=== PATIENT | male | born 1975 | race Caucasian/White ===

== ENCOUNTER → 2016-09-30 | Day surgery (SDC) | payer OTHER ==
[2016-09-10 09:56] VITALS: BMI 27.0
[~2016-09-30] VITALS: Ht 172.7 cm; Wt 81.8 kg
[~2016-09-30] MED LIST: ANDG TOP; CALC625T13 PO; CALC625T35 PO; FENTANYL CITRATE INJ 50 MCG/1 ML 2 ML VIAL ONE; LIDOCAINE HCL 2% 2 ML VIAL (20MG/ML) ONE; OMEG10007 PO; PANT40TA PO; POLYSOL50 IO; PROPOFOL IV EMULSION 10 MG/ML 20 ML VIAL IV ONE
[2016-09-30 09:50] VITALS: Ht 172.7 cm; Wt 81.8 kg
[2016-09-30 09:56] VITALS: TEMP 36.7
--- NOTE | 2016-09-30 10:37 | Endo History and Physical ---
History & Physical Date of Service: Sep 30, 2016. Chief Complaint: GI Bleed Referring Physician: Dr. Ana María Beverly History of Present Illness 41 yo CM who presents for EGD secondary to GI Bleed and hematemesis Past Surgical History Hx Cardiac Surgery: No Hx Internal Defibrillator: No Hx Pacemaker: No Hx Abdominal Surgery: No Hx Post-Op Nausea and Vomiting: No Hx Cancer Surgery: No Hx Thoracic Surgery: No Hx Orthopedic: Yes (RT SHOULDER ARTHRSCOPY) Hx Urinary Tract Surgery: Yes (VASECTOMY) Family History Colon CA Social History Smoking Status: Never Smoker Hx Substance Use: No Hx Alcohol Use: Yes (RARELY) Allergies Coded Allergies: No Known Allergies (Verified , 09/30/16) Current Medications Reported Home Medications Medications Dose Route/Sig Max Daily Dose Days Date Category [place]-3 (Fish Oil) 1 Ea Cap 1 Cap PO QAM 09/02/16 Reported Protonix (Pantoprazole Sodium) 40 Mg Tab 40 Mg PO QAM 09/02/16 Reported Androgel (Testosterone) 5 Gm Gel 1 Pkt TOP QAM 08/25/16 Reported Vital Signs Weight (Kilograms): 81.82 Height (Feet): 5 Height (Inches): 8 Date Time Temp Pulse Resp B/P Pulse Ox O2 Delivery O2 Flow Rate FiO2 09/30/16 09:56 36.7 68 18 121/69 97 Room Air Physical Exam General Appearance: WD/WN, no apparent distress Respiratory/Chest: Auscultation: breath sounds normal Cardiovascular: Heart Auscultation: RRR Abdomen: Bowel Sounds: normal Inspection & Palpation: soft, non-distended, no tenderness, guarding & rebound Assessment and Plan Assessment: 41 yo CM who presents for EGD secondary to GI Bleed and hematemesis Plan: Proceed with EGD
--- NOTE | 2016-09-30 11:05 | GI REPORT ---
Procedure Date: 09/30/2016 10:46 AM Procedure: Upper GI endoscopy Indications: Hematemesis, Gastrointestinal bleeding of unknown origin Medicines: Monitored Anesthesia Care Complications: No immediate complications. Estimated Blood Loss: Estimated blood loss: none. Procedure: Pre-Anesthesia Assessment: - Prior to the procedure, a History and Physical was performed, and patient medications and allergies were reviewed. The patient's tolerance of previous anesthesia was also reviewed. The risks and benefits of the procedure and the sedation options and risks were discussed with the patient. All questions were answered, and informed consent was obtained. Prior Anticoagulants: The patient has taken no previous anticoagulant or antiplatelet agents. ASA Grade Assessment: II - A patient with mild systemic disease. After reviewing the risks and benefits, the patient was deemed in satisfactory condition to undergo the procedure. After obtaining informed consent, the endoscope was passed under direct vision. Throughout the procedure, the patient's blood pressure, pulse, and oxygen saturations were monitored continuously. The scope was introduced through the mouth, and advanced to the second part of duodenum. The upper GI endoscopy was accomplished without difficulty. The patient tolerated the procedure well. Findings: The esophagus was normal. Localized mild inflammation characterized by erythema was found in the gastric antrum. Biopsies were taken with a cold forceps for histology. The examined duodenum was normal. Impression: - Normal esophagus. - Gastritis. Biopsied. - Normal examined duodenum. Recommendation: - Resume previous diet. - Continue present medications. - Await pathology results. - Return to GI office as previously scheduled. Mekhi Blakely DO 09/30/2016 11:04:39 AM This report has been signed electronically. Note Initiated On: 09/30/2016 10:46 AM
[2016-09-30 11:24] VITALS: BP 130/86; PULSE 64; O2SAT 97
--- NOTE | 2016-09-30 11:26 | Discharge Instructions ---
Endoscopy Patient Instructions Date / Procedure(s) Performed Sep 30, 2016. EGD Allergy Information Coded Allergies: No Known Allergies (Verified , 09/30/16) Discharge Date / Findings Sep 30, 2016. Gastritis s/p biopsies Medication Instructions OK to resume all medications today as prescribed Reported Home Medications Medications Dose Route/Sig Max Daily Dose Days Date Category [place]-3 (Fish Oil) 1 Ea Cap 1 Cap PO QAM 09/02/16 Reported Protonix (Pantoprazole Sodium) 40 Mg Tab 40 Mg PO QAM 09/02/16 Reported Androgel (Testosterone) 5 Gm Gel 1 Pkt TOP QAM 08/25/16 Reported Provider Instructions Activity Restrictions - No exercising or heavy lifting for 24 hours. - Do not drink alcohol the day of the procedure. - Do not drive a car or operate machinery until the day after the procedure. - Do not make any important decisions or sign important papers in 24 hours after the procedure. Following Day: - Return to full activity which may include returning to work/school. Diet Start your diet with liquids and light foods (jello, soup, juice, toast). Then eat your usual diet if not nauseated. Treatment For Common After Affects For mild abdominal pain, bloating, or excessive gas: - Rest - Eat lightly - Lie on right side Follow-Up Information Follow-up with Dr. Ana María Beverly as scheduled Anesthesia Information What You Should Know You have had a procedure that required some medicine to reduce anxiety and discomfort. This treatment is called moderate sedation. After receiving the treatment, you may be sleepy, but you will be able to breathe on your own. The effects of the treatment may last for several hours. Follow these instructions along with Activity/Diet recommendations noted above: * Do NOT do anything where dizziness or clumsiness would be dangerous. * Rest quietly at home today, then you can be up and about tomorrow. * Have a responsible person stay with you the rest of today. * You may have had an I.V. today. If so, you may take the dressing off later today. Recommendations Call your doctor if: * Trouble breathing * Continuous vomiting for more than 24 hours * Temperature above 101 degrees * Severe abdominal pain or bloating * Pain not relieved by pain medicine ordered * There is increased drainage or redness from any incision * A large amount of rectal bleeding greater than 2-3 tablespoons. (If you had a polyp/s removed or have hemorrhoids, a small amount of blood - from the rectum is to be expected.) * You have any unanswered questions or concerns. IN THE EVENT OF A SERIOUS EMERGENCY, GO TO THE NEAREST EMERGENCY ROOM Your discharge instructions were prepared by provider Mekhi Blakely. Patient Instructions Signature Page Teo Schmitt Patient (or Guardian) Signature/Date: I have read and understand the instructions given to me by my caregivers. Caregiver/RN/Doctor Signature/Date: The above-named patient and/or guardian has received patient instructions on this date. + Original Patient Signature Page (only) stays with chart. Please make copy for patient.
--- NOTE | 2016-09-30 11:52 | Anesthesiology Progress Note ---
Anesthesia Post Op Note Date & Time Sep 30, 2016 at 11:52 Vital Signs Pain Intensity: 0 Vital Signs Past 12 Hours Date Time Temp Pulse Resp B/P Pulse Ox O2 Delivery O2 Flow Rate FiO2 09/30/16 11:24 64 16 130/86 97 Room Air 09/30/16 11:09 66 16 130/84 97 Room Air 09/30/16 11:01 69 16 139/68 96 Room Air 09/30/16 09:56 36.7 68 18 121/69 97 Room Air Notes Mental Status: alert / awake / arousable, participated in evaluation Pt Amnestic to Procedure: Yes Nausea / Vomiting: adequately controlled Pain: adequately controlled Airway Patency, RR, SpO2: stable & adequate BP & HR: stable & adequate Hydration State: stable & adequate Anesthetic Complications: no major complications apparent
== END | disposition home or self-care (01) ==
LOC: C.GI 09:41
PROVIDERS: ATTEND Internal Medicine
DX: K92.0 Hematemesis (principal); K92.2 Gastrointestinal hemorrhage, unspecified; K29.70 Gastritis, unspecified, without bleeding; Z98.52 Vasectomy status; Z80.0 Family history of malignant neoplasm of digestive organs; Z68.27 Body mass index [BMI] 27.0-27.9, adult

== ENCOUNTER 2017-02-01 09:41 | Emergency (ER) | payer OTHER ==
[~2017-02-01] VITALS: Ht 172.7 cm; Wt 81.7 kg
[~2017-02-01 09:41] MED LIST changes: -CALC625T13 PO; -CALC625T35 PO; -FENTANYL CITRATE INJ 50 MCG/1 ML 2 ML VIAL ONE; -LIDOCAINE HCL 2% 2 ML VIAL (20MG/ML) ONE; -POLYSOL50 IO; -PROPOFOL IV EMULSION 10 MG/ML 20 ML VIAL IV ONE
[2017-02-01 09:48] VITALS: TEMP 37.1; Ht 172.7 cm; Wt 81.7 kg
[2017-02-01] MEDS ORDERED: POLYSOL50 IO (10:22)
--- NOTE | 2017-02-01 10:33 | EMERGENCY ROOM VISIT NOTE ---
History First contact with patient: 09:50 Chief Complaint: EYE ASSESSMENT Stated Complaint: METAL IN EYE History of Present Illness The patient is a 42 year old male who presents to the Emergency Room with complaints of anterior eye pain after drilling into concrete yesterday. He felt he had something in his eye and washed it out thoroughly after the drilling. Pain initially went away but then woke up again with pain this morning and washed out his eye again. He is now pain free in the ER. He denies any vision changes/loss, floaters, flashing lights. He does not wear contact lenses. Review of Systems See HPI for pertinent positives & negatives. A total of 6 systems reviewed and were otherwise negative. Past Medical/Surgical History Medical Problems: (1) Hemorrhoidectomy (2) Panic attack Family History No pertinent family history Social History Smoking Status: Never Smoker Alcohol Use: none Drug Use: none Marital Status: Housing Status: lives with family Occupation Status: employed Current/Historical Medications Scheduled Calcium Polycarbophil (Fiber), 625 MG PO DAILY Fish Oil ([place]-3), 1 CAP PO QAM Polymyxin/Trimethoprim Oph (Polytrim Oph), 1 DROP IO QID Testosterone (Androgel), 1 PKT TOP QAM Allergies Coded Allergies: No Known Allergies (Verified , 02/01/17) Physical Exam Vital Signs Date Time Temp Pulse Resp B/P (MAP) Pulse Ox O2 Delivery O2 Flow Rate FiO2 02/01/17 10:40 70 16 115/68 96 02/01/17 09:48 37.1 76 18 126/71 95 Room Air Physical Exam VITAL SIGNS: were reviewed as above GENERAL: no acute distress EYES: extraocular muscles intact, pupils equal and reactive to light Funduscopic / slit lamp examination: RIGHT EYE: Visual acuity grossly normal Visual field normal Conjunctiva white AC deep and quiet Lens clear optic nerve normal LEFT EYE: No pain on examination Visual acuity grossly normal Visual field normal Conjunctiva mildly injected Small 1mm diameter corneal abrasion enhances with fluorescein dye, no rust ring no foreign object identified on cornea or eyelids AC deep and quiet Clear lens optic nerve normal Medical Decision & Procedures ED Course Patient was seen, history taken and slip lamp examination in room B10 at 10:00am Patient discussed with Dr Monsivais who separately performed H&P (please see additional note) Patient was discharged with Polymyxin/Trimethoprim 1 drop Left eye QID to take for 5 days Medical Decision Prior records/ancillary studies reviewed. Triage Nursing notes reviewed. The patient's history was concerning for eye pain. Differential diagnosis: Etiologies such as corneal ulcer, corneal abrasion, foreign object, iritis, glaucoma as well as others were entertained. Physical findings: As above. No acute vision changes noted Diagnostics interpreted by me: Slit lamp examination revealed a small corneal abrasion. By the evaluation outlined above emergent etiologies were deemed relatively unlikely. The patient was informed about the findings as listed above. All questions were answered and he was pleased with the treatment plan. Return instructions were outlined and the patient was discharged in stable condition. Impression Primary Impression: Corneal abrasion, left Departure Information Dispostion Home / Self-Care Condition GOOD Prescriptions Polymyxin/Trimethoprim Oph (Polytrim Oph) Soln 1 DROP IO QID for 5 Days Prov: Gui Valera MD 02/01/17 Forms WORK / SCHOOL INSTRUCTIONS, HOME CARE DOCUMENTATION FORM, IMPORTANT VISIT INFORMATION Patient Instructions Corneal Injury, [email or web address] Additional Instructions You were assessed in the ER for eye pain after foreign body in your eye. Slit lamp examination showed small corneal abrasion at 11 'o' clock position of your left eye. Recommend treating with topical antibiotics to prevent infection over the next 5 days four times/day. If you have vision changes, pain worsens or does not improve you should be reassessed by your Primary Care Physician or eye doctor. Resident Tracking Resident Involvement: Resident Care Provided Care Provided: Adult ED Problem Qualifiers Primary Impression: Corneal abrasion, left Encounter type: initial encounter Qualified Codes: S05.02XA - Injury of conjunctiva and corneal abrasion without foreign body, left eye, initial encounter
[2017-02-01] MEDS ORDERED: CALC625T35 PO (10:36)
[2017-02-01 10:40] VITALS: BP 115/68; PULSE 70; O2SAT 96
--- NOTE | 2017-02-01 14:12 | EMERGENCY ROOM VISIT NOTE ---
History Report prepared by Matilde: Poncho Hand Under the Supervision of: Yoel WoodallO. First contact with patient: 09:50 Chief Complaint: EYE ASSESSMENT Stated Complaint: METAL IN EYE History of Present Illness The patient is a 42 year old male who presents to the Emergency Room for resolved left eye pain that started last night. He says that he was drilling a brass lock for a pool. The patient states that he felt something go into his left eye, and it felt better after he flushed it. However, he woke up with terrible pain, so he flushed the eye again, and currently has no left eye pain. He says that he may have gotten the piece out of his eye when he flushed it, but just wanted to come here to make sure it was out. The patient denies any difficulty with vision. He states that he does not wear glasses or contacts. No change in vision. Source of History: patient Onset: Last night Position: eye (left) Quality: other (thinks got metal in left eye) Timing: resolved Modifying Factors (Relieving): other (washing eye) Note: Associated symptoms: Denies vision difficulties. Review of Systems See HPI for pertinent positives & negatives. A total of 10 systems reviewed and were otherwise negative. Past Medical & Surgical Medical Problems: (1) Hemorrhoidectomy (2) Panic attack Family History No pertinent family history Social History Smoking Status: Never Smoker Alcohol Use: none Drug Use: none Marital Status: Housing Status: lives with family Occupation Status: employed Current/Historical Medications Scheduled Calcium Polycarbophil (Fiber), 625 MG PO DAILY Fish Oil ([place]-3), 1 CAP PO QAM Polymyxin/Trimethoprim Oph (Polytrim Oph), 1 DROP IO QID Testosterone (Androgel), 1 PKT TOP QAM Allergies Coded Allergies: No Known Allergies (Verified , 02/01/17) Physical Exam Vital Signs Date Time Temp Pulse Resp B/P (MAP) Pulse Ox O2 Delivery O2 Flow Rate FiO2 02/01/17 10:40 70 16 115/68 96 02/01/17 09:48 37.1 76 18 126/71 95 Room Air Physical Exam GENERAL: sitting up in chair, alert, well appearing, well nourished, no distress , non-toxic EYE EXAM: normal conjunctiva, PERRL and EOM's grossly intact Funduscopic Exam: Conjunctiva injected. Small corneal abrasion at 11 o'clock. No cell, no flare. AC deep and quiet. OROPHARYNX: mucous membranes are moist LUNGS: Normal chest wall mechanics UPPER EXTREMITIES: upper extremities are grossly normal. NEURO EXAM: Age appropriate, normal sensorium. Medical Decision & Procedures ED Course ED COURSE: Vital signs were reviewed and showed hypertensive vitals. The patients medical record was reviewed The above diagnostic studies were performed and reviewed. ED treatments and interventions as stated above. 1022: The patient was evaluated in room B12B. A complete history and physical examination was performed. I discussed my findings with the patient and he understands and agrees with the treatment plan. Based on the patients age, coexisting illnesses, exam and lab findings the decision to treat as an outpatient was made. The patient remained stable while under my care. The patient appeared well at the time of discharge. Medical Decision Differential diagnosis: Etiologies such as~a trauma, corneal abrasion, corneal ulcer, foreign body, globe penetration, hyphema, hypopyon, and orbital cellulitis, periorbital cellulitis, as well as others were entertained. Medication Reconciliation: I attest that I have personally reviewed the patient' s current medication list. Blood pressure screening: Patient was found to have an elevated blood pressure and was referred to their primary doctor for recheck and further treatment. Patient is a 42-year-old male who presents the ER he was seen independently and separate from the resident for left eye pain. Patient notes this started while he was drilling into concrete and metal. He felt something go into his eye that point. Patient notes that upon presentation his pain has completely resolved. He did wash his eye out twice. On exam he does have a corneal abrasion and 11:00. I did not see any cell or flare. He has no current complaint. Based on his presentation symptoms and felt was reasonable to discharge him and have him follow-up with ophthalmology in 2 days. He was given ophthalmic antibiotics. Discussed with Pt concerning signs and symptoms to watch out for. Pt was instructed to follow up with their PCP and discussed with the patient their option to return to the ED at anytime for persistent or worsening symptoms. The appropriate anticipatory guidance and out-patient management, including indications for return to the emergency department, were explained at length to the patient and understood. Impression Primary Impression: Corneal abrasion, left Scribe Attestation The scribe's documentation has been prepared under my direction and personally reviewed by me in its entirety. I confirm that the note above accurately reflects all work, treatment, procedures, and medical decision making performed by me. Departure Information Dispostion Home / Self-Care Prescriptions Polymyxin/Trimethoprim Oph (Polytrim Oph) Soln 1 DROP IO QID for 5 Days Prov: Gui Valera MD 02/01/17 Referrals Chucky Beverly D[facility] (PCP) Patient Instructions Corneal Injury, My [facility] Additional Instructions You were assessed in the ER for eye pain after foreign body in your eye. Slit lamp examination showed small corneal abrasion at 11 'o' clock position of your left eye. Recommend treating with topical antibiotics to prevent infection over the next 5 days four times/day. If you have vision changes, pain worsens or does not improve you should be reassessed by your Primary Care Physician or eye doctor. Problem Qualifiers Primary Impression: Corneal abrasion, left Encounter type: initial encounter Qualified Codes: S05.02XA - Injury of conjunctiva and corneal abrasion without foreign body, left eye, initial encounter
[2017-04-30] MEDS ORDERED: PANT40TA PO (08:08)
== END 2017-02-01 10:41 | disposition home or self-care (01) ==
LOC: C.EDB 09:42
DX: S05.02XA Injury of conjunctiva and corneal abrasion without foreign body, left eye, initial encounter (principal); Z79.899 Other long term (current) drug therapy; X58.XXXA Exposure to other specified factors, initial encounter; Y93.89 Activity, other specified

== ENCOUNTER → 2017-03-23 | Outpatient (CLI) | payer OTHER ==
[~2017-03-23] MED LIST changes: +CALC625T35 PO; +POLYSOL50 IO
[2017-03-23 16:45] LABS: BASO ABS # 0.06 K/uL (0-0.2); COMPLETE YES; EOS % 0.8 %; HEMATOCRIT 43.8 % (42-52); IG% 0.2 %; LYMPH % 33.5 %; LYMPH ABS # 2.07 K/uL (1.2-3.4); MEAN CELL VOLUME 91.8 fL (80-100); MEAN CORPUSCULAR HEMOGLOBIN 31.4 pg (25-34); MEAN CORPUSCULAR HGB CONC 34.2 g/dl (32-36); MEAN PLATELET VOLUME 10.9 fL (7.4-10.4); MONO % 11.3 %; NEUT % 53.2 %; PLATELET COUNT 252 K/uL (130-400); RED BLOOD COUNT 4.77 M/uL (4.7-6.1); WHITE BLOOD COUNT 6.17 K/uL (4.8-10.8)
[2017-03-23 16:53] LABS: BLOOD UREA NITROGEN 9 mg/dl (7-18); BUN/CREATININE RATIO 9.4 (10-20); CALCIUM 8.8 mg/dl (8.5-10.1); CARBON DIOXIDE 33 mmol/L (21-32); CHLORIDE 107 mmol/L (98-107); CREATININE 0.99 mg/dl (0.60-1.40); GLUCOSE 95 mg/dl (70-99); POTASSIUM 3.8 mmol/L (3.5-5.1); SODIUM 143 mmol/L (136-145)
[2017-03-23 18:19] LABS: LYME DISEASE AB IGG NEG (NEG)
[2017-03-23 18:22] LABS: LYME DISEASE AB IGM EQUIVOCAL (NEG)
[2017-03-28 09:19] LABS: 18KDIGG BAND NONREACTIVE (NONREACTIVE); 23KDIGG BAND NONREACTIVE (NONREACTIVE); 23KDIGM BAND REACTIVE (NONREACTIVE); 28KDIGG BAND NONREACTIVE (NONREACTIVE); 30KDIGG BAND NONREACTIVE (NONREACTIVE); 39KDIGG BAND NONREACTIVE (NONREACTIVE); 39KDIGM BAND NONREACTIVE (NONREACTIVE); 41KDIGG BAND REACTIVE (NONREACTIVE); 41KDIGM BAND NONREACTIVE (NONREACTIVE); 45KDIGG BAND NONREACTIVE (NONREACTIVE); 58KDIGG BAND NONREACTIVE (NONREACTIVE); 66KDIGG BAND NONREACTIVE (NONREACTIVE); 93KDIGG BAND NONREACTIVE (NONREACTIVE)
== END | disposition home or self-care (01) ==
LOC: C.LABBC 14:10
PROVIDERS: ATTEND Psychiatry & Neurology Neurology
DX: R51 Headache (principal); W57.XXXA Bitten or stung by nonvenomous insect and other nonvenomous arthropods, initial encounter

== ENCOUNTER → 2017-04-20 | Outpatient (CLI) | payer OTHER ==
[2017-04-20 12:47] LABS: BASO % 0.6 %; BASO ABS # 0.04 K/uL (0-0.2); COMPLETE YES; EOS % 0.3 %; HEMATOCRIT 44.3 % (42-52); IG% 0.3 %; LYMPH % 30.4 %; LYMPH ABS # 1.97 K/uL (1.2-3.4); MEAN CORPUSCULAR HGB CONC 34.1 g/dl (32-36); MEAN PLATELET VOLUME 10.6 fL (7.4-10.4); MONO % 12.7 %; NEUT % 55.7 %; PLATELET COUNT 232 K/uL (130-400); RED BLOOD COUNT 4.87 M/uL (4.7-6.1); WHITE BLOOD COUNT 6.48 K/uL (4.8-10.8)
[2017-04-20 13:12] LABS: ALKALINE PHOSPHATASE 64 U/L (45-117); ALT/SGPT 50 U/L (12-78); AST/SGOT 31 U/L (15-37)
[2017-04-20 14:25] LABS: LYME DISEASE AB IGG NEG (NEG)
[2017-04-20 14:27] LABS: LYME DISEASE AB IGM EQUIVOCAL (NEG)
[2017-04-24 20:01] LABS: 18KDIGG BAND NONREACTIVE (NONREACTIVE); 23KDIGG BAND NONREACTIVE (NONREACTIVE); 23KDIGM BAND REACTIVE (NONREACTIVE); 28KDIGG BAND NONREACTIVE (NONREACTIVE); 30KDIGG BAND NONREACTIVE (NONREACTIVE); 39KDIGG BAND NONREACTIVE (NONREACTIVE); 39KDIGM BAND NONREACTIVE (NONREACTIVE); 41KDIGG BAND REACTIVE (NONREACTIVE); 41KDIGM BAND REACTIVE (NONREACTIVE); 45KDIGG BAND NONREACTIVE (NONREACTIVE); 58KDIGG BAND NONREACTIVE (NONREACTIVE); 66KDIGG BAND NONREACTIVE (NONREACTIVE); 93KDIGG BAND NONREACTIVE (NONREACTIVE)
[2017-05-01 16:30] LABS: ANAPLASMA PHAGOCYTOPHIL IGG <1:64 (<1:64); ANAPLASMA PHAGOCYTOPHIL IGM <1:20 (<1:20)
== END | disposition home or self-care (01) ==
LOC: C.LAB1850 11:28
PROVIDERS: ATTEND Internal Medicine Infectious Disease
DX: A69.20 Lyme disease, unspecified (principal)

== ENCOUNTER → 2017-05-11 | Day surgery (SDC) | payer OTHER ==
[2017-01-21 09:17] VITALS: BMI 27.0
[2017-04-30 08:09] VITALS: Ht 172.7 cm; Wt 81.8 kg
[~2017-05-11] VITALS: Ht 172.7 cm; Wt 81.8 kg
[~2017-05-11] MED LIST changes: +LIDOCAINE HCL 2% 2 ML VIAL (20MG/ML) ONE; -POLYSOL50 IO; +PROPOFOL IV EMULSION 10 MG/ML 20 ML VIAL IV ONE; +SODIUM CHLORIDE 0.9% 500ML 500 ML IV ONE
--- NOTE | 2017-05-11 11:23 | Endo History and Physical ---
History & Physical Date of Service: May 11, 2017. Chief Complaint: family history of colon cancer Referring Physician: JASPER Brock History of Present Illness 42 yo CM who presents for colonoscopy secondary to family history of colon cancer (Mother). Past Surgical History Hx Cardiac Surgery: No Hx Internal Defibrillator: No Hx Pacemaker: No Hx Abdominal Surgery: No Hx of Implantable Prosthesis: No Hx Post-Op Nausea and Vomiting: No Hx Cancer Surgery: No Hx Thoracic Surgery: No Hx Orthopedic: Yes (RT SHOULDER ARTHRSCOPY) Hx Urinary Tract Surgery: Yes (VASECTOMY) Family History Colon CA Social History Smoking Status: Never Smoker Hx Substance Use: No Hx Alcohol Use: Yes (RARELY) Allergies Coded Allergies: No Known Allergies (Verified , 04/30/17) Current Medications Reported Home Medications Medications Dose Route/Sig Max Daily Dose Days Date Category Protonix (Pantoprazole Sodium) 40 Mg Tab 40 Mg PO QAM 04/30/17 Reported Fiber (Calcium Polycarbophil) 625 Mg Tab 625 Mg PO QAM 02/01/17 Reported [place]-3 (Fish Oil) 1 Ea Cap 1 Cap PO QAM 09/02/16 Reported Androgel (Testosterone) 5 Gm Gel 1 Pkt TOP QAM 08/25/16 Reported Vital Signs Weight (Kilograms): 81.82 Height (Feet): 5 Height (Inches): 8 Date Time Temp Pulse Resp B/P (MAP) Pulse Ox O2 Delivery O2 Flow Rate FiO2 05/11/17 11:10 37 71 18 119/77 (91) 95 Room Air Physical Exam General Appearance: WD/WN, no apparent distress Respiratory/Chest: Auscultation: breath sounds normal Cardiovascular: Heart Auscultation: RRR Abdomen: Bowel Sounds: normal Inspection & Palpation: soft, non-distended, no tenderness, guarding & rebound Assessment and Plan Assessment: 42 yo CM who presents for colonoscopy secondary to family history of colon cancer (Mother). Plan: Proceed with colonoscopy.
--- NOTE | 2017-05-11 12:53 | Discharge Instructions ---
Endoscopy Patient Instructions Date / Procedure(s) Performed May 11, 2017. Colonoscopy Allergy Information Coded Allergies: No Known Allergies (Verified , 04/30/17) Discharge Date / Findings May 11, 2017. Colon polyps Rectal polyp Diverticulosis Medication Instructions Stopped Medication(s): Patient was told he could take his protonix this am. OK to resume all medications today as prescribed Reported Home Medications Medications Dose Route/Sig Max Daily Dose Days Date Category Protonix (Pantoprazole Sodium) 40 Mg Tab 40 Mg PO QAM 04/30/17 Reported Fiber (Calcium Polycarbophil) 625 Mg Tab 625 Mg PO QAM 02/01/17 Reported [place]-3 (Fish Oil) 1 Ea Cap 1 Cap PO QAM 09/02/16 Reported Androgel (Testosterone) 5 Gm Gel 1 Pkt TOP QAM 08/25/16 Reported Provider Instructions Activity Restrictions - No exercising or heavy lifting for 24 hours. - Do not drink alcohol the day of the procedure. - Do not drive a car or operate machinery until the day after the procedure. - Do not make any important decisions or sign important papers in 24 hours after the procedure. Following Day: - Return to full activity which may include returning to work/school. Diet Start your diet with liquids and light foods (jello, soup, juice, toast). Then eat your usual diet if not nauseated. Treatment For Common After Affects For mild abdominal pain, bloating, or excessive gas: - Rest - Eat lightly - Lie on right side Follow-Up Information Follow-up with JASPER Brock as scheduled Anesthesia Information What You Should Know You have had a procedure that required some medicine to reduce anxiety and discomfort. This treatment is called moderate sedation. After receiving the treatment, you may be sleepy, but you will be able to breathe on your own. The effects of the treatment may last for several hours. Follow these instructions along with Activity/Diet recommendations noted above: * Do NOT do anything where dizziness or clumsiness would be dangerous. * Rest quietly at home today, then you can be up and about tomorrow. * Have a responsible person stay with you the rest of today. * You may have had an I.V. today. If so, you may take the dressing off later today. Recommendations Call your doctor if: * Trouble breathing * Continuous vomiting for more than 24 hours * Temperature above 101 degrees * Severe abdominal pain or bloating * Pain not relieved by pain medicine ordered * There is increased drainage or redness from any incision * A large amount of rectal bleeding greater than 2-3 tablespoons. (If you had a polyp/s removed or have hemorrhoids, a small amount of blood - from the rectum is to be expected.) * You have any unanswered questions or concerns. IN THE EVENT OF A SERIOUS EMERGENCY, GO TO THE NEAREST EMERGENCY ROOM Your discharge instructions were prepared by provider Mekhi Blakely. Patient Instructions Signature Page Teo Schmitt Patient (or Guardian) Signature/Date: I have read and understand the instructions given to me by my caregivers. Caregiver/RN/Doctor Signature/Date: The above-named patient and/or guardian has received patient instructions on this date. + Original Patient Signature Page (only) stays with chart. Please make copy for patient.
--- NOTE | 2017-05-11 12:59 | GI REPORT ---
Procedure Date: 05/11/2017 11:27 AM Procedure: Colonoscopy Indications: Family history of colon cancer in a first-degree relative Medicines: Monitored Anesthesia Care Complications: No immediate complications. Estimated Blood Loss: Estimated blood loss: none. Procedure: Pre-Anesthesia Assessment: - Prior to the procedure, a History and Physical was performed, and patient medications and allergies were reviewed. The patient's tolerance of previous anesthesia was also reviewed. The risks and benefits of the procedure and the sedation options and risks were discussed with the patient. All questions were answered, and informed consent was obtained. Prior Anticoagulants: The patient has taken no previous anticoagulant or antiplatelet agents. ASA Grade Assessment: II - A patient with mild systemic disease. After reviewing the risks and benefits, the patient was deemed in satisfactory condition to undergo the procedure. After I obtained informed consent, the scope was passed under direct vision. Throughout the procedure, the patient's blood pressure, pulse, and oxygen saturations were monitored continuously. The scope was introduced through the anus and advanced to the terminal ileum. The colonoscopy was performed without difficulty. The patient tolerated the procedure well. The quality of the bowel preparation was good. The terminal ileum, ileocecal valve, appendiceal orifice, and rectum were photographed. Findings: Three sessile polyps were found in the rectum, in the sigmoid colon and in the descending colon. The polyps were 4 to 6 mm in size. These polyps were removed with a hot snare. Resection and retrieval were complete. Multiple small-mouthed diverticula were found in the sigmoid colon. Impression: - Three 4 to 6 mm polyps in the rectum, in the sigmoid colon and in the descending colon, removed with a hot snare. Resected and retrieved. - Diverticulosis in the sigmoid colon. Recommendation: - Resume previous diet. - Continue present medications. - Repeat colonoscopy for surveillance based on pathology results. - Return to primary care physician as previously scheduled. Mekhi Blakely DO 05/11/2017 12:58:54 PM This report has been signed electronically. Note Initiated On: 05/11/2017 11:27 AM I attest to the content of the Intraoperative Record and orders documented therein, exceptions below
--- NOTE | 2017-05-11 13:20 | Anesthesiology Progress Note ---
Anesthesia Post Op Note Date & Time May 11, 2017 at 13:20 Vital Signs Pain Intensity: 0 Vital Signs Past 12 Hours Date Time Temp Pulse Resp B/P (MAP) Pulse Ox O2 Delivery O2 Flow Rate FiO2 05/11/17 13:07 68 18 106/75 (85) 95 Room Air 05/11/17 12:51 80 18 106/68 (81) 95 Room Air 05/11/17 11:10 37 71 18 119/77 (91) 95 Room Air Notes Mental Status: alert / awake / arousable, participated in evaluation Pt Amnestic to Procedure: Yes Nausea / Vomiting: adequately controlled Pain: adequately controlled Airway Patency, RR, SpO2: stable & adequate BP & HR: stable & adequate Hydration State: stable & adequate Anesthetic Complications: no major complications apparent
[2017-05-11 13:23] VITALS: BP 103/76; PULSE 75; O2SAT 98
== END | disposition home or self-care (01) ==
LOC: C.GI 10:43
PROVIDERS: ATTEND Internal Medicine
DX: Z12.11 Encounter for screening for malignant neoplasm of colon (principal); Z80.0 Family history of malignant neoplasm of digestive organs; D12.4 Benign neoplasm of descending colon; D12.5 Benign neoplasm of sigmoid colon; D12.8 Benign neoplasm of rectum; K57.32 Diverticulitis of large intestine without perforation or abscess without bleeding

== ENCOUNTER → 2017-08-28 | Outpatient (CLI) | payer OTHER ==
[~2017-08-28] MED LIST changes: -LIDOCAINE HCL 2% 2 ML VIAL (20MG/ML) ONE; -PROPOFOL IV EMULSION 10 MG/ML 20 ML VIAL IV ONE; -SODIUM CHLORIDE 0.9% 500ML 500 ML IV ONE
== END | disposition home or self-care (01) ==
LOC: C.LABBC 14:52
PROVIDERS: ATTEND Internal Medicine Endocrinology, Diabetes & Metabolism
DX: E23.0 Hypopituitarism (principal)

== ENCOUNTER → 2017-09-09 | Outpatient (CLI) | payer OTHER | END | disposition home or self-care (01) | LOC: C.LABBC 12:23 | PROVIDERS: ATTEND Internal Medicine Endocrinology, Diabetes & Metabolism | DX: E23.0 Hypopituitarism (principal) ==

== ENCOUNTER 2021-04-01 18:34 | Inpatient (IN) ==
[2021-04-01] MEDS ORDERED: dexAMETHasone**PF** 10 MG/ML VIAL IV ONE (19:24)
[2021-04-01] MEDS ORDERED: SODIUM CHLORIDE 0.9% 1000ML 1,000 ML IV ONE (19:25)
[2021-04-01] MEDS ORDERED: ACETAMINOPHEN 500 MG TAB PO STA (19:25)
--- NOTE | 2021-04-01 19:37 | Emergency Department Note ---
Impression & Plan Pneumonia due to 2019 novel coronavirus, Hypoxic, Leukocytosis ED Provider Note NAME: EDDY PIERRE AGE: 46 SEX: M : 1975 ARRIVES VIA: Walk-In INFORMANT: Patient ED PROVIDER(S): Brandon Monsivais DO CHIEF COMPLAINT: Covid positive HPI: Patient is a 46-year-old male who is unvaccinated that presents to the ER with symptoms that started on the with cough and congestion. He notes that shortness of breath and cough has been getting worse. He was seen Thursday and was in SVT and was discharged on steroids. Pulse ox at home has been in the low to mid 80s. He does admit to some chest pain with coughing. Has been febrile today. No belly pain, nausea, or vomiting. Does have diarrhea. He admits that overall he is feeling worse. ROS: See above HPI for pertinent positives & negatives. A total of 10 systems reviewed and were otherwise negative. PAST MEDICAL HISTORY:See Below PAST SURGICAL HISTORY:See Below FAMILY HISTORY:See Below SOCIAL HISTORY:See Below HOME MEDICATIONS:See Below ALLERGIES:See Below VITALS:See Below PHYSICAL EXAMINATION: GENERAL: Sitting up in bed, alert, chronically ill-appearing, disheveled, with a cough on nasal cannula EYE EXAM: normal conjunctiva. OROPHARYNX: no exudate, no erythema, lips, buccal mucosa, and tongue normal and mucous membranes are moist NECK: supple, no nuchal rigidity, no adenopathy, non-tender LUNGS: Clear to auscultation. Normal chest wall mechanics HEART: Tachycardic, S1 normal and S2 normal ABDOMEN: abdomen soft, non-tender, normo-active bowel sounds, no masses, no rebound or guarding. BACK: Back is symmetrical on inspection and there is no deformity, no midline tenderness, no CVA tenderness. SKIN: no rashes and no bruising UPPER EXTREMITIES: upper extremities are grossly normal. LOWER EXTREMITIES: No pitting edema. NEURO EXAM: Normal sensorium, cranial nerves II-XII grossly intact, normal speech, no gross weakness of arms, no gross weakness of legs. MEDICAL DECISION MAKING: Patient is a 46-year-old male who presents ER for cough and shortness of breath found to be hypoxic at home with a known positive Covid. IV was established blood was obtained. Labs show leukocytosis 14,000. No significant anemia. INR was unremarkable. D-dimer was slightly elevated 510. BMP with mild hyponatremia at 134. LFTs were slightly up at 133 and 154. Troponin was negative. Lipase was normal. Covid was positive. Patient was given IV fluids Tylenol and Decadron while here in the ER. Discussed with the hospitalist admitted for further work-up of his hypoxia and Covid pneumonia. Patient remained on nasal cannula throughout the stay in the ER. Triage Nursing notes reviewed. Limited review of prior medical records performed Vital Signs: reviewed and remarkable for febrile, tachycardic and hypoxic Differential diagnosis: Differential diagnoses includes but is not limited to pneumonia, bronchitis, COPD/Asthma exacerbation, pneumothorax, pulmonary embolism, congestive heart failure, acute coronary syndrome ER treatment provided: See below Diagnostics interpreted by me: ECG: Sinus rhythm rate 83 Normal axis T wave inversion lead III QTC 430 Cardiac Monitoring: An order was placed for continuous cardiac monitoring. The monitor shows a rate of 82 with sinus rhythm. Laboratory studies: As stated above and show below. Imaging studies: Portable AP upright 1 view of the chest shows multifocal pneumonia Consultation(s): Discussed the hospitalist for further evaluation Procedures: none Critical Care: I have personally spent 35 minutes of critical care time in the direct management of this patient. This includes bedside care, interpretation of diagnostic studies, and testing, discussion with consultants, patient, and family members, and other required patient management activities. This 35 minutes is in excess of all separately billable procedures. Past Med/Surg History Surgical History History of colonoscopy History of hemorrhoidectomy History of shoulder surgery History of tooth extraction Family History Mother Myocardial infarction Breast cancer Colorectal cancer Malignant neoplasm of gastrointestinal tract Denies family history of Ovarian cancer Prostate cancer Social History Smoking Status: Never smoker Second Hand Exposure: Yes (Childhood); Do You Dip or Chew Tobacco: No; Hx Alcohol Use: Yes Alcohol type: beer Alcohol Intake Frequency: 2-3 x/Week Hx Substance Use: No Preferred Language: Hungarian Communication Ability: Effective Visual Impairment: No Limitations Hearing Ability: Normal Scale Tank Operator Required: No Beliefs That Will Affect Care: None marital status: Current Living Situation: Spouse and Family Current Living Situation Comment: , father, 2 children current occupational status: employed current occupation: [employer] How many Children do You have: 2 Other Information That Helps Us Care for You: No Feels Safe at Home: Yes Safety Concerns: Feels Safe At This Time Childhood Exposure to Second-Hand Smoke: Yes caffeine: No during the past year weight has: remained stable Dental Care, Regularly: Yes Physical Activity Frequency: 1-2 Times per Week Seatbelt Use: always Sunscreen Use: Yes Assistive Devices: None Allergies Allergies Allergy/AdvReac Type Severity Reaction Status Date / Time No Known Allergies Allergy Verified 04/01/21 19:36 Home Meds Home Medications Medication Instructions Recorded Confirmed multivitamin (Daily Multi-Vitamin) 1 tab PO QAM 11/15/20 04/01/21 omega-3 fatty acids 1,000 mg 2,000 mg PO QAM cap 12/07/20 04/01/21 capsule (Fish Oil Concentrate) testosterone 1 % (50 mg/5 gram) 100 mg TD QAM 03/29/21 04/01/21 transdermal gel packet (AndroGel) omeprazole 40 mg capsule,delayed 40 mg PO QAM 04/01/21 04/01/21 release Previous Rx's Medication Instructions Recorded albuterol sulfate 90 mcg/actuation 2 inh INHALATION Q6H PRN #8.5 g 03/29/21 aerosol inhaler dexamethasone 6 mg tablet 6 mg PO DAILY #6 tab 03/29/21 hydrocodone-homatropine 5 mg-1.5 5 - 10 ml PO Q6H PRN #100 ml 04/01/21 mg/5 mL (5 mL) oral syrup (Hycodan) Results & Data (ED) Vital Signs Vital Signs - 24 hr 04/01/21 19:03 04/01/21 19:17 04/01/21 19:30 Temperature 38.8 C H Temperature Source Oral Pulse Rate 89 80 82 Pulse Rate from SpO2 Sensor 84 89 Pulse Rhythm Respiratory Rate 30 H 20 20 Blood Pressure 122/83 133/78 115/72 Blood Pressure Mean 96 96 86 Pulse Oximetry 89 L 90 90 Oxygen Delivery Method Room Air Nasal Cannula Nasal Cannula Oxygen Flow Rate 4 4 Sepsis Recent Fever Within 48 Hours Yes Sepsis New/Unexplained Change in Mental Status No Sepsis Action Taken by Nursing No Action Required 04/01/21 19:57 04/01/21 20:00 04/01/21 20:33 Temperature Temperature Source Pulse Rate 81 81 87 Pulse Rate from SpO2 Sensor 81 87 Pulse Rhythm Regular Respiratory Rate 25 H 19 22 Blood Pressure 117/72 Blood Pressure Mean 87 Pulse Oximetry 95 94 93 Oxygen Delivery Method Nasal Cannula Nasal Cannula Oxymask Oxygen Flow Rate 4 4 Sepsis Recent Fever Within 48 Hours Sepsis New/Unexplained Change in Mental Status Sepsis Action Taken by Nursing 04/01/21 20:35 04/01/21 20:40 04/01/21 20:50 Temperature Temperature Source Pulse Rate 86 82 Pulse Rate from SpO2 Sensor 85 82 Pulse Rhythm Respiratory Rate 22 23 Blood Pressure Blood Pressure Mean Pulse Oximetry 92 95 93 Oxygen Delivery Method Nasal Cannula Oxymask Oxymask Oxygen Flow Rate 4 4 4 Sepsis Recent Fever Within 48 Hours Sepsis New/Unexplained Change in Mental Status Sepsis Action Taken by Nursing 04/01/21 21:00 04/01/21 21:10 04/01/21 21:20 Temperature Temperature Source Pulse Rate 80 78 78 Pulse Rate from SpO2 Sensor 80 78 78 Pulse Rhythm Respiratory Rate 23 22 21 Blood Pressure Blood Pressure Mean Pulse Oximetry 92 92 90 Oxygen Delivery Method Oxymask Oxymask Oxymask Oxygen Flow Rate 4 4 4 Sepsis Recent Fever Within 48 Hours Sepsis New/Unexplained Change in Mental Status Sepsis Action Taken by Nursing 04/01/21 21:30 04/01/21 21:40 04/01/21 21:50 Temperature Temperature Source Pulse Rate 76 84 84 Pulse Rate from SpO2 Sensor 76 84 83 Pulse Rhythm Respiratory Rate 21 22 24 Blood Pressure Blood Pressure Mean Pulse Oximetry 91 91 91 Oxygen Delivery Method Oxymask Oxymask Oxymask Oxygen Flow Rate 4 4 4 Sepsis Recent Fever Within 48 Hours Sepsis New/Unexplained Change in Mental Status Sepsis Action Taken by Nursing Laboratory Data Result diagrams: 04/01/21 20:25 04/01/21 20:25 Lab Results 04/01/21 04/01/21 04/01/21 Range/Units 20:25 20:25 20:25 WBC 14.76 H (4.8-10.8) K/uL RBC 4.79 (4.7-6.1) M/uL Hgb 15.0 (14.0-18.0) g/dL Hct 44.1 (42-52) % MCV 92.1 (80-100) fL MCH 31.3 (25-34) pg MCHC 34.0 (32-36) g/dL RDW Std Deviation 48.3 H (36.4-46.3) fL RDW Coeff of Liset 14.2 (11.5-14.5) % Plt Count 172 (130-400) K/uL MPV 11.5 H (7.4-10.4) fL Immature Gran % (Auto) 0.3 % Neut % (Auto) 88.8 % Lymph % (Auto) 5.4 % Dyer % (Auto) 5.4 % Eos % (Auto) 0.0 % Baso % (Auto) 0.1 % Neut # (Auto) 13.11 H (1.4-6.5) K/uL Lymph # (Auto) 0.79 L (1.2-3.4) K/uL Dyer # (Auto) 0.80 H (0.11-0.59) K/uL Eos # (Auto) 0.00 (0-0.5) K/uL Baso # (Auto) 0.01 (0-0.2) K/uL Immature Gran # (Auto) 0.05 H (0.00-0.02) K/uL PT (9.0-12.0) Seconds INR (0.9-1.1) APTT 40.8 H (21.0-31.0) Seconds PTT Ratio 1.6 D-Dimer (0-500) ug/L FEU Sodium 134 L (136-145) mmol/L Potassium 3.8 (3.5-5.1) mmol/L Chloride 97 L (98-107) mmol/L Carbon Dioxide 30 (21-32) mmol/L Anion Gap 7.0 (3-11) BUN 12 (7-18) mg/dl Creatinine 0.99 (0.6-1.4) mg/dl Est Cr Clr Drug Dosing 92.1 ml/min Est GFR ( Amer) 106.9 ml/min Est GFR (Non-Af Amer) 92.2 ml/min BUN/Creatinine Ratio 11.7 (10-20) Glucose 111 H (70-99) mg/dl Calcium 8.6 (8.5-10.1) mg/dl Total Bilirubin 0.4 (0.2-1) mg/dl AST 133 H (15-37) U/L ALT 154 H (12-78) U/L Alkaline Phosphatase 39 L (45-117) U/L Troponin I < 0.015 (0-0.045) ng/ml Total Protein 8.0 (6.4-8.2) gm/dl Albumin 2.9 L (3.4-5.0) gm/dl Globulin 5.1 H (2.5-4.0) gm/dl Albumin/Globulin Ratio 0.6 L (0.9-2) Lipase 102 (73-393) U/L 04/01/21 04/01/21 Range/Units 20:25 20:25 WBC (4.8-10.8) K/uL RBC (4.7-6.1) M/uL Hgb (14.0-18.0) g/dL Hct (42-52) % MCV (80-100) fL MCH (25-34) pg MCHC (32-36) g/dL RDW Std Deviation (36.4-46.3) fL RDW Coeff of Liset (11.5-14.5) % Plt Count (130-400) K/uL MPV (7.4-10.4) fL Immature Gran % (Auto) % Neut % (Auto) % Lymph % (Auto) % Dyer % (Auto) % Eos % (Auto) % Baso % (Auto) % Neut # (Auto) (1.4-6.5) K/uL Lymph # (Auto) (1.2-3.4) K/uL Dyer # (Auto) (0.11-0.59) K/uL Eos # (Auto) (0-0.5) K/uL Baso # (Auto) (0-0.2) K/uL Immature Gran # (Auto) (0.00-0.02) K/uL PT 10.6 (9.0-12.0) Seconds INR 1.0 (0.9-1.1) APTT (21.0-31.0) Seconds PTT Ratio D-Dimer 510 H* (0-500) ug/L FEU Sodium (136-145) mmol/L Potassium (3.5-5.1) mmol/L Chloride (98-107) mmol/L Carbon Dioxide (21-32) mmol/L Anion Gap (3-11) BUN (7-18) mg/dl Creatinine (0.6-1.4) mg/dl Est Cr Clr Drug Dosing ml/min Est GFR ( Amer) ml/min Est GFR (Non-Af Amer) ml/min BUN/Creatinine Ratio (10-20) Glucose (70-99) mg/dl Calcium (8.5-10.1) mg/dl Total Bilirubin (0.2-1) mg/dl AST (15-37) U/L ALT (12-78) U/L Alkaline Phosphatase (45-117) U/L Troponin I (0-0.045) ng/ml Total Protein (6.4-8.2) gm/dl Albumin (3.4-5.0) gm/dl Globulin (2.5-4.0) gm/dl Albumin/Globulin Ratio (0.9-2) Lipase (73-393) U/L Administered Medications Albuterol (Albut/Ipratrop 3mg/0.5mg Neb 3 Ml Vial) 3 ml NEB Q6R MARIZOL Stop: 05/02/21 00:59 Last Admin: 04/02/21 00:27 Dose: 3 ml Documented by: [id number] Discontinued Medications Acetaminophen (Acetaminophen 500 Mg Tab) 1,000 mg PO NOW STA Stop: 04/01/21 19:26 Last Admin: 04/01/21 20:12 Dose: 1,000 mg Documented by: [id number] Dexamethasone Sodium Phosphate (DexamethasonePf 10 Mg/Ml Vial) 6 mg IV NOW ONE Stop: 04/01/21 19:25 Last Admin: 04/01/21 20:22 Dose: 6 mg Documented by: [id number] Sodium Chloride (Nss 1000ml) 1,000 mls @ 999 mls/hr IV .Q1H1M ONE Stop: 04/01/21 20:25 Last Infusion: 04/01/21 21:39 Dose: 0 mls/hr Documented by: [id number] Admin: 04/01/21 20:22 Dose: 999 mls/hr Documented by: [id number] Remdesivir 200 mg/ Sodium (Chloride) 250 mls @ 125 mls/hr IV ONE STA; Protocol Stop: 04/02/21 00:11 Last Admin: 04/01/21 23:31 Dose: 125 mls/hr Documented by: [id number] Imaging Data Radiologist's Impression: Chest X-Ray 04/01/21 19:24 SINGLE VIEW CHEST CLINICAL HISTORY: Atypical chest pain. Covid. FINDINGS: An AP, portable, upright chest radiograph is compared to study dated 08/25/2016 and correlated with chest CT dated 03/29/2021. The cardiomediastinal silhouette is unremarkable. Multifocal airspace consolidation is seen throughout both lungs. No large pleural effusion or pneumothorax is seen. The bony thorax is grossly intact. IMPRESSION: Multifocal airspace consolidation is consistent with the reported history of a viral pneumonia. This has likely worsened as compared to the 03/29/2021 CT scan. Radiographic follow-up to resolution is recommended. ACT 112: Negative or not required by law. Electronically signed by: Krunal Torres M.D. 04/01/2021 8:05 PM Discharge Plan Visit Data Chief Complaint: Chest Pain Stated Complaint: L SIDED CHEST PAIN, PULSE OX MID 80S, ED Provider: Brandon Monsivais Discharge Problem: Pneumonia due to 2019 novel coronavirus, Hypoxic, Leukocytosis Patient Disposition: Admitted As Inpatient Discharge Instructions Interventions: ED Discharge Assessment Last Done: 04/01/21 22:59 Discharge Problem: Leukocytosis Qualifiers: Leukocytosis type: unspecified Qualified Code(s): D72.829 - Elevated white blood cell count, unspecified
--- NOTE | 2021-04-01 20:07 | XRay Report ---
SINGLE VIEW CHEST CLINICAL HISTORY: Atypical chest pain. Covid. FINDINGS: An AP, portable, upright chest radiograph is compared to study dated 08/25/2016 and correla brett with chest CT dated 03/29/2021. The cardiomediastinal silhouette is unremarkable. Multifocal airsp rebecca consolidation is seen throughout both lungs. No large pleural effusion or pneumothorax is seen. T he bony thorax is grossly intact. IMPRESSION: Multifocal airspace consolidation is consistent with the reported history of a viral pneu monia. This has likely worsened as compared to the 03/29/2021 CT scan. Radiographic follow-up to girish nuñez is recommended. ACT 112: Negative or not required by law. Electronically signed by: Krunal Torres M.D. 04/01/2021 8:05 PM
[2021-04-01 20:43] LABS: Basophils # (auto) 0.01 K/uL (0-0.2); Basophils % (auto) 0.1 %; Hematocrit (blood only) 44.1 % (42-52); Immature Granulocytes # (auto) 0.05 K/uL (0.00-0.02); Immature Granulocytes % (auto) 0.3 %; Lymphocytes # (auto) 0.79 K/uL (1.2-3.4); Lymphocytes % (auto) 5.4 %; Mean Corpuscular Hemoglobin 31.3 pg (25-34); Mean Corpuscular Volume 92.1 fL (80-100); Mean Platelet Volume 11.5 fL (7.4-10.4); Monocytes % (auto) 5.4 %; Neutrophils # (auto) 13.11 K/uL (1.4-6.5); Neutrophils % (auto) 88.8 %; Platelet Count 172 K/uL (130-400); RDW Coefficient of Variation 14.2 % (11.5-14.5); RDW Standard Deviation 48.3 fL (36.4-46.3); Red Blood Count 4.79 M/uL (4.7-6.1); White Blood Count 14.76 K/uL (4.8-10.8)
[2021-04-01 20:56] LABS: Partial Thromboplastin Ratio 1.6; Partial Thromboplastin Time 40.8 Seconds (21.0-31.0)
[2021-04-01 21:07] LABS: Alanine Aminotransferase 154 U/L (12-78); Albumin Level 2.9 gm/dl (3.4-5.0); Aspartate Aminotransferase 133 U/L (15-37); BUN Creatinine Ratio 11.7 (10-20); Blood Urea Nitrogen 12 mg/dl (7-18); Calcium 8.6 mg/dl (8.5-10.1); Carbon Dioxide 30 mmol/L (21-32); Chloride 97 mmol/L (98-107); Creatinine Clr Calc Pharmacy 92.1 ml/min; Est GFR (African American) 106.9 ml/min; Est GFR (Non-African American) 92.2 ml/min; Glucose 111 mg/dl (70-99); Lipase 102 U/L (73-393); Potassium 3.8 mmol/L (3.5-5.1); Sodium 134 mmol/L (136-145)
[2021-04-01 21:12] LABS: Albumin Globulin Ratio 0.6 (0.9-2); Alkaline Phosphatase 39 U/L (45-117); Bilirubin,Total 0.4 mg/dl (0.2-1); Globulin 5.1 gm/dl (2.5-4.0); Troponin I < 0.015 ng/ml (0-0.045)
[2021-04-01 21:33] LABS: Prothrombin Time 10.6 Seconds (9.0-12.0)
[2021-04-01] MEDS ORDERED: REMDESIVIR 200 MG in SODIUM CHLORIDE 0.9% 210 ML IV STA (22:12)
--- NOTE | 2021-04-01 22:14 | History & Physical Report ---
Date of Service April 01, 2021 Assessment & Plan (1) Acute respiratory failure with hypoxemia: Plan: Mr. Schmitt is a 46 yo M with a known COVID 19 infection who presented with ongoing symptoms despite oral dexamethasone therapy. - septic, SIRS criteria met on admission (WBC, fever). Lactate pending. IV hydration - O2 sat 89% on arrival, indicative of severe COVID-19 disease - procal ordered to assess for superimposed bacterial PNA - Azithromycin 500mg IV daily - Duo-Nebs qid - Remdesirvir ordered, although patient may be outside window of effectiveness - Dexamethasone 6mg for 10 days (started on 03/30/21) - zinc sulfate 220mg daily - vit D 5,000 IU - mucinex 600mg BID - pulmonology consult placed to evaluate for tocilizumab - continue supplemental o2 as needed (2) Elevated d-dimer: Plan: - level at 510 on admission - will initiate Lovenox 40mg SQ q12 per covid protocol (3) Elevated transaminase level: Plan: - AST elevated to 133, ALT to 154 - likely secondary to acute viral infection - avoid Tylenol use/hepatotoxins - trend CMP DVT ppx: Lovenox 40mg SQ q12 (covid protocol) Diet: Regular Dispo: Med/Surg with tele. COVID precautions Code: Full, I discussed with patient History of Present Illness Primary Care Provider: Moris Stoner DO Mr. Schmitt is a 46 yo gentleman who tested positive for COVID-19 after returning from a trip to [place]. His symptoms began on 03/23/21 and included chills, cough, shortness of breath, body aches, and diarrhea. Of note, he went to an Urgent Care clinic on 03/29/21 where testing was ordered and returned positive. While at the Urgent Care, he was found to be in SVT. He was directed to come to the [facility] ED for further management. Fortunately, by the time he arrived at the ED, his SVT had abated. A chest CTA was done during his ED visit and was negative. He was given a script for Dexamethasone 6mg as well as an albuterol inhaler and discharged home. He called back in to the ED earlier today to report a lack of improvement in symptoms, at which time a codeine cough syrup was called into his pharmacy. He was instructed to return to the ED if his pulse oximeter read < 89%. He has no underlying lung disease. Not immunocompromised. No history of smoking. He was not vaccinated against COVID. Occasional Etoh use. In the ED, he was febrile to 38.8, his HR was normal and his O2 at was 89 on room air. It improved to 93 with 4L of supplemental oxygen delivered via NC. His WBC was elevata to 14, with lymphopenia. His Na was mildly low at 134. Kidney function was WNL. His AST was elevated to 133, ALT to 154. Trop undetectable. Lipase not elevated. EKG showing NSR. His CXR showed evidence of a viral pneumonia. He was given 1 liter of NSS, Dexamethasone 6mg IV and 1g Tylenol. Allergies Allergy/AdvReac Type Severity Reaction Status Date / Time No Known Allergies Allergy Verified 04/01/21 19:36 Home Medications Medication Instructions Recorded Confirmed Type multivitamin (Daily Multi-Vitamin) 1 tab PO QAM 11/15/20 04/01/21 History omega-3 fatty acids 1,000 mg 2,000 mg PO QAM cap 12/07/20 04/01/21 History capsule (Fish Oil Concentrate) albuterol sulfate 90 mcg/actuation 2 inh INHALATION Q6H PRN #8.5 g 03/29/21 04/01/21 Rx aerosol inhaler dexamethasone 6 mg tablet 6 mg PO DAILY #6 tab 03/29/21 04/01/21 Rx testosterone 1 % (50 mg/5 gram) 100 mg TD QAM 03/29/21 04/01/21 History transdermal gel packet (AndroGel) hydrocodone-homatropine 5 mg-1.5 5 - 10 ml PO Q6H PRN #100 ml 04/01/21 04/01/21 Rx mg/5 mL (5 mL) oral syrup (Hycodan) omeprazole 40 mg capsule,delayed 40 mg PO QAM 04/01/21 04/01/21 History release Past Med/Surg History Surgical History History of colonoscopy History of hemorrhoidectomy History of shoulder surgery History of tooth extraction Family History Mother Myocardial infarction Breast cancer Colorectal cancer Malignant neoplasm of gastrointestinal tract Denies family history of Ovarian cancer Prostate cancer Social History Smoking Status: Never smoker Second Hand Exposure: Yes (Childhood); Do You Dip or Chew Tobacco: No; Hx Alcohol Use: Yes Alcohol type: beer Alcohol Intake Frequency: 2-3 x/Week Hx Substance Use: No Preferred Language: Greenlandic Communication Ability: Effective Visual Impairment: No Limitations Hearing Ability: Normal Tong Setter Required: No Beliefs That Will Affect Care: None marital status: Current Living Situation: Spouse and Family Current Living Situation Comment: , father, 2 children current occupational status: employed current occupation: [employer] How many Children do You have: 2 Other Information That Helps Us Care for You: No Feels Safe at Home: Yes Safety Concerns: Feels Safe At This Time Childhood Exposure to Second-Hand Smoke: Yes caffeine: No during the past year weight has: remained stable Dental Care, Regularly: Yes Physical Activity Frequency: 1-2 Times per Week Seatbelt Use: always Sunscreen Use: Yes Assistive Devices: Oxygen - Continuous Review of Systems Gastrointestinal: no nausea and no vomiting Physical Exam Constitutional: WD/WN, vitals as above cooperative; no acute distress Eyes: + anicteric sclerae ENMT: external ear and nose normal, oropharynx normal Neck: trachea midline Respiratory: normal respiratory effort and + cough; no respiratory distress Auscultation: + crackles (diffusely present through b/l lung yoo ) Cardiovascular: RRR, no murmur, no edema Heart Sounds: normal S1 and normal S2 Extremities: no pedal edema Gastrointestinal (Abdomen): normal bowel sounds, soft, nontender, no hepatosplenomegaly Musculoskeletal: Head/Neck/Chest: normocephalic and head atraumatic Skin: no rashes, warm and dry Psychiatric: A+Ox3, euthymic affect Results & Data Results & Data ([facility]) Vital Signs (Past 12 Hours) Vital Signs Temp Pulse Resp BP Pulse Ox 04/01/21 21:30 76 21 91 04/01/21 21:20 78 21 90 04/01/21 21:10 78 22 92 04/01/21 21:00 80 23 92 04/01/21 20:50 82 23 93 04/01/21 20:40 86 22 95 04/01/21 20:35 92 04/01/21 20:33 87 22 93 04/01/21 20:00 81 19 117/72 94 04/01/21 19:57 81 25 H 95 04/01/21 19:30 82 20 115/72 90 04/01/21 19:17 80 20 133/78 90 04/01/21 19:03 38.8 C H 89 30 H 122/83 89 L Supervising Physician Co-Signing Physician Notes Attending addendum: I have physically seen this patient, have supervised the medical residents activities, and agree with the H&P unless as otherwise noted. Assessment and Plan: Acute respiratory failure with hypoxia/COVID-19 multifocal pneumonia- Dexamethasone 6 mg IV daily Remdesivir IV per protocol Azithromycin 500 mg IV daily Vitamin D 5000 international units p.o. daily Zinc sulfate 220 mg p.o. daily Guaifenesin extended release 60 mg p.o. twice daily Proventil HFA 2 puffs 4 times daily DuoNebs every 2 hours as needed Lovenox 40 mg subcu every 12 hours Transaminitis- Likely secondary to COVID-19 infection Follow serial laboratories Remaining orders and notations as noted Resident Activity Tracking Resident Involvement: Resident Care Provided Care Provided: Adult Hospital Medicine
[2021-04-01] MEDS ORDERED: POLYETHYLENE (MIRALAX) 17 GM PACK PO PRN (23:13)
[2021-04-01] MEDS ORDERED: ONDANSETRON INJ 2 MG/ML 2 ML VIAL IV PRN (23:13)
[2021-04-01 23:44] LABS: D Dimer 510 ug/L FEU (0-500)
[2021-04-02] MEDS: ALBUT/IPRATROP 3MG/0.5MG NEB 3 ML VIAL NEB SCH ×5 (00:27→23:26)
[2021-04-02] MEDS: AZITHROMYCIN 500 MG in DEXTROSE 5% 250 ML IV SCH ×2 (00:47→21:43)
[2021-04-02] MEDS: SODIUM CHLORIDE 0.9% 10ML FLUSH IV SCH ×2 (01:40→21:46)
[2021-04-02 02:04] LABS: Basophils # (auto) 0.01 K/uL (0-0.2); Basophils % (auto) 0.1 %; Hematocrit (blood only) 44.4 % (42-52); Hemoglobin 14.9 g/dL (14.0-18.0); Immature Granulocytes # (auto) 0.04 K/uL (0.00-0.02); Immature Granulocytes % (auto) 0.3 %; Lymphocytes # (auto) 0.69 K/uL (1.2-3.4); Lymphocytes % (auto) 4.6 %; Mean Corpuscular Hemoglobin 31.2 pg (25-34); Mean Corpuscular Hgb Conc 33.6 g/dL (32-36); Mean Corpuscular Volume 92.9 fL (80-100); Mean Platelet Volume 10.8 fL (7.4-10.4); Monocytes # (auto) 0.58 K/uL (0.11-0.59); Monocytes % (auto) 3.8 %; Neutrophils % (auto) 91.2 %; Platelet Count 183 K/uL (130-400); RDW Coefficient of Variation 14.5 % (11.5-14.5); RDW Standard Deviation 49.8 fL (36.4-46.3); Red Blood Count 4.78 M/uL (4.7-6.1); White Blood Count 15.12 K/uL (4.8-10.8)
[2021-04-02] MEDS: ENOXAPARIN INJ 40 MG/0.4 ML SYR SQ SCH ×2 (02:57→11:02)
[2021-04-02 03:04] LABS: Albumin Globulin Ratio 0.6 (0.9-2); Albumin Level 2.9 gm/dl (3.4-5.0); BUN Creatinine Ratio 12.2 (10-20); Calcium 8.6 mg/dl (8.5-10.1); Creatinine Clr Calc Pharmacy 92.1 ml/min; Est GFR (African American) 106.9 ml/min; Est GFR (Non-African American) 92.2 ml/min; Potassium 3.6 mmol/L (3.5-5.1); Total Protein 7.9 gm/dl (6.4-8.2)
[2021-04-02 03:06] LABS: Bilirubin,Total 0.4 mg/dl (0.2-1)
[2021-04-02] MEDS ORDERED: SODIUM CHLORIDE 0.9% 1000ML 1,000 ML IV SCH (04:45)
[2021-04-02] MEDS ORDERED: TESTOSTERONE SCH (08:00)
[2021-04-02] MEDS ORDERED: LORazepam 0.5 MG TAB PO STA (08:03)
[2021-04-02] MEDS: TESTOSTERONE GEL TOP SCH (08:23)
[2021-04-02] MEDS: guaiFENesin 600 MG TABCR PO SCH ×2 (08:23→21:37)
[2021-04-02] MEDS: CHOLECALCIFEROL 1,000 UNITS 25 MCG TAB PO SCH (08:24)
[2021-04-02] MEDS: dexAMETHasone 6 MG in SYRINGE 0 ML IV SCH (08:24)
[2021-04-02] MEDS: ZINC SULFATE 220 MG CAPSULE PO SCH (08:24)
--- NOTE | 2021-04-02 08:53 | Hospitalist Progress Note ---
Date of Service April 02, 2021 Assessment & Plan (1) Acute respiratory failure with hypoxemia: Plan: Mr. Schmitt is a 46 yo M with a known COVID 19 infection who presented with ongoing symptoms despite oral dexamethasone therapy. symptoms began 03/23, started on dexamethasone on 03/30 when he was in the ED, he is around day 10 of illness continue dexamethasone 6mg IV daily x 10 days, day 4 today started on Remdesivir, not sure that it would be helpful at this point, d/w pulm about stopping continue Zithromax supportive care with Zinc, Vitamin D stop IV fluids as he has crackles, want to keep lungs dry, encourage him to eat and drink consider Lasix if breathing gets worse CRP pending, ordered by pulmonology encouraged him to lay prone as much as possible (2) Pneumonia due to 2019 novel coronavirus: Plan: patient is not vaccinated, recent travel to [place], symptoms on 03/23, thus he is around day 10 of illness on presentation CXR with bilateral infiltrates treatment with dexamethasone, Zithromax stop fluids, keep lungs dry consider stopping Remdesivir (3) Elevated d-dimer: Plan: - level at 510 on admission - Lovenox 40mg SQ q12 per covid protocol (4) Elevated transaminase level: Plan: - AST elevated to 133, ALT to 154 - likely secondary to acute viral infection - avoid Tylenol use/hepatotoxins - trend CMP (5) Panic attack: Plan: very anxious this morning relieved with Ativan 0.5mg PO, will order PRN Admission and Anticipated Discharge Date Admission Date: April 01, 2021 Subjective patient says he was really anxious this morning, had a mild panic attack, he is just worried about being hospitalized with COVID I assured him that we will get him through this, take it one day at a time he confirmed he got sick on 03/23, low grade fevers progressed to high fevers this past week of 102 + dyspnea, diarrhea, weakness, cough his got the vaccine, he did not get vaccinated, she had mild symptoms and tested negative after his positive test he has not been able to eat much the past two weeks, his has been pushing yogurt, muffins, he tries to get things down reviewed the labs, leukopenia, elevated d dimer CXR with bilateral infiltrates told RN to stop fluids encouraged patient to lay prone periodically to help oxygen levels explained that he might need more oxygen before getting better awaiting pulmonology consult Review of Systems Review of Systems: All systems reviewed & are unremarkable except as noted in Subjective Physical Exam Constitutional: well developed, well nourished, + ill appearing and + in distress (mild, respiratory); + uncomfortable Neck: trachea midline, no thyromegaly Respiratory: + labored breathing, + cough and + tachypneic Auscultation: + crackles (bilaterally); no rales, no rhonchi and no wheezes Cardiovascular: Rate/Rhythm: regular rhythm and + tachycardic Heart Sounds: normal S1 and normal S2; no murmur Extremities: normal capillary refill; no edema Gastrointestinal (Abdomen): normal bowel sounds, soft, nontender, no hepatosplenomegaly Musculoskeletal: no cyanosis or clubbing, extremities motor strength 5/5 Skin: no rashes, warm and dry Neurologic: patellar DTR's 2+ bilat, sensation intact and PERRL, EOMI, accommodation nl, no face palsy, no dysarthria Psychiatric: Orientation: alert and oriented x 3 Affect: + anxious affect Results & Data Results & Data ([facility]) Vital Signs (Past 12 Hours) Vital Signs Temp Pulse Pulse Resp BP Pulse Ox Pulse Ox 04/02/21 07:59 37.1 C 100 H 22 134/75 90 04/02/21 07:37 82 18 91 04/02/21 07:18 71 04/02/21 02:55 37.0 C 75 20 110/74 90 04/02/21 00:27 86 20 93 04/01/21 23:57 79 04/01/21 23:55 37.0 C 77 20 112/71 89 L 04/01/21 23:52 89 L 04/01/21 23:15 37.0 C 77 20 112/71 89 L 04/01/21 22:50 79 21 91 04/01/21 22:40 78 22 92 04/01/21 22:30 76 24 91 04/01/21 22:20 81 25 H 92 04/01/21 22:10 79 21 91 04/01/21 22:00 76 21 90 04/01/21 21:50 84 24 91 04/01/21 21:40 84 22 91 04/01/21 21:30 76 21 91 04/01/21 21:20 78 21 90 04/01/21 21:10 78 22 92 04/01/21 21:00 80 23 92 04/01/21 20:50 82 23 93 Laboratory Results Laboratory Results - last 24 hr 04/01/21 04/01/21 04/01/21 20:25 20:25 20:25 WBC 14.76 H RBC 4.79 Hgb 15.0 Hct 44.1 MCV 92.1 MCH 31.3 MCHC 34.0 RDW Std Deviation 48.3 H RDW Coeff of Liset 14.2 Plt Count 172 MPV 11.5 H Immature Gran % (Auto) 0.3 Neut % (Auto) 88.8 Lymph % (Auto) 5.4 [place] % (Auto) 5.4 Eos % (Auto) 0.0 Baso % (Auto) 0.1 Neut # (Auto) 13.11 H Lymph # (Auto) 0.79 L [place] # (Auto) 0.80 H Eos # (Auto) 0.00 Baso # (Auto) 0.01 Immature Gran # (Auto) 0.05 H PT INR APTT 40.8 H PTT Ratio 1.6 D-Dimer Sodium 134 L Potassium 3.8 Chloride 97 L Carbon Dioxide 30 Anion Gap 7.0 BUN 12 Creatinine 0.99 Est Cr Clr Drug Dosing 92.1 Est GFR ( Amer) 106.9 Est GFR (Non-Af Amer) 92.2 BUN/Creatinine Ratio 11.7 Glucose 111 H Lactate Calcium 8.6 Total Bilirubin 0.4 AST 133 H ALT 154 H Alkaline Phosphatase 39 L Troponin I < 0.015 C-Reactive Protein Total Protein 8.0 Albumin 2.9 L Globulin 5.1 H Albumin/Globulin Ratio 0.6 L Lipase 102 Procalcitonin Ethyl Alcohol mg/dL COVID-19 Eval Order SARS-CoV-2 (PCR) 04/01/21 04/01/21 04/01/21 20:25 20:25 20:25 WBC RBC Hgb Hct MCV MCH MCHC RDW Std Deviation RDW Coeff of Liset Plt Count MPV Immature Gran % (Auto) Neut % (Auto) Lymph % (Auto) [place] % (Auto) Eos % (Auto) Baso % (Auto) Neut # (Auto) Lymph # (Auto) [place] # (Auto) Eos # (Auto) Baso # (Auto) Immature Gran # (Auto) PT 10.6 INR 1.0 APTT PTT Ratio D-Dimer 510 H* Sodium Potassium Chloride Carbon Dioxide Anion Gap BUN Creatinine Est Cr Clr Drug Dosing Est GFR ( Amer) Est GFR (Non-Af Amer) BUN/Creatinine Ratio Glucose Lactate Calcium Total Bilirubin AST ALT Alkaline Phosphatase Troponin I C-Reactive Protein Total Protein Albumin Globulin Albumin/Globulin Ratio Lipase Procalcitonin 0.47 Ethyl Alcohol mg/dL COVID-19 Eval Order SARS-CoV-2 (PCR) 04/01/21 04/01/21 04/02/21 22:16 22:16 01:49 WBC 15.12 H RBC 4.78 Hgb 14.9 Hct 44.4 MCV 92.9 MCH 31.2 MCHC 33.6 RDW Std Deviation 49.8 H RDW Coeff of Liset 14.5 Plt Count 183 MPV 10.8 H Immature Gran % (Auto) 0.3 Neut % (Auto) 91.2 Lymph % (Auto) 4.6 [place] % (Auto) 3.8 Eos % (Auto) 0.0 Baso % (Auto) 0.1 Neut # (Auto) 13.80 H Lymph # (Auto) 0.69 L [place] # (Auto) 0.58 Eos # (Auto) 0.00 Baso # (Auto) 0.01 Immature Gran # (Auto) 0.04 H PT INR APTT PTT Ratio D-Dimer Sodium Potassium Chloride Carbon Dioxide Anion Gap BUN Creatinine Est Cr Clr Drug Dosing Est GFR ( Amer) Est GFR (Non-Af Amer) BUN/Creatinine Ratio Glucose Lactate Calcium Total Bilirubin AST ALT Alkaline Phosphatase Troponin I C-Reactive Protein Total Protein Albumin Globulin Albumin/Globulin Ratio Lipase Procalcitonin Ethyl Alcohol mg/dL COVID-19 Eval Order Covid19 at [facility] SARS-CoV-2 (PCR) POSITIVE A* 04/02/21 04/02/21 04/02/21 01:49 01:49 08:09 WBC RBC Hgb Hct MCV MCH MCHC RDW Std Deviation RDW Coeff of Liset Plt Count MPV Immature Gran % (Auto) Neut % (Auto) Lymph % (Auto) [place] % (Auto) Eos % (Auto) Baso % (Auto) Neut # (Auto) Lymph # (Auto) [place] # (Auto) Eos # (Auto) Baso # (Auto) Immature Gran # (Auto) PT INR APTT PTT Ratio D-Dimer Sodium 134 L Potassium 3.6 Chloride 99 Carbon Dioxide 28 Anion Gap 7.0 BUN 12 Creatinine 0.99 Est Cr Clr Drug Dosing 92.1 Est GFR ( Amer) 106.9 Est GFR (Non-Af Amer) 92.2 BUN/Creatinine Ratio 12.2 Glucose 139 H Lactate 2.9 H* Calcium 8.6 Total Bilirubin 0.4 AST 154 H ALT 178 H Alkaline Phosphatase 39 L Troponin I C-Reactive Protein Pending Total Protein 7.9 Albumin 2.9 L Globulin 5.0 H Albumin/Globulin Ratio 0.6 L Lipase Procalcitonin Ethyl Alcohol mg/dL COVID-19 Eval Order SARS-CoV-2 (PCR) 04/02/21 08:09 WBC RBC Hgb Hct MCV MCH MCHC RDW Std Deviation RDW Coeff of Liset Plt Count MPV Immature Gran % (Auto) Neut % (Auto) Lymph % (Auto) [place] % (Auto) Eos % (Auto) Baso % (Auto) Neut # (Auto) Lymph # (Auto) [place] # (Auto) Eos # (Auto) Baso # (Auto) Immature Gran # (Auto) PT INR APTT PTT Ratio D-Dimer Sodium Potassium Chloride Carbon Dioxide Anion Gap BUN Creatinine Est Cr Clr Drug Dosing Est GFR ( Amer) Est GFR (Non-Af Amer) BUN/Creatinine Ratio Glucose Lactate Calcium Total Bilirubin AST ALT Alkaline Phosphatase Troponin I C-Reactive Protein Total Protein Albumin Globulin Albumin/Globulin Ratio Lipase Procalcitonin Ethyl Alcohol mg/dL Pending COVID-19 Eval Order SARS-CoV-2 (PCR) Medications Administered Current Inpatient Medications Albuterol (Albut/Ipratrop 3mg/0.5mg Neb 3 Ml Vial) 3 ml NEB Q6R [facility] Stop: 05/02/21 00:59 Last Admin: 04/02/21 07:37 Dose: 3 ml Documented by: Enoxaparin Sodium (Enoxaparin Inj 40 Mg/0.4 Ml Syr) 40 mg SQ Q12 [facility] Stop: 05/02/21 01:59 Last Admin: 04/02/21 02:57 Dose: Not Given Documented by: Guaifenesin (Guaifenesin 600 Mg Tabcr) 1,200 mg PO Q12 [facility] Stop: 05/02/21 08:59 Last Admin: 04/02/21 08:23 Dose: 1,200 mg Documented by: Dexamethasone 6 mg/ Syringe 1.5 mls @ 1 mls/min IV DAILY [facility] Stop: 04/10/21 09:02 Last Admin: 04/02/21 08:24 Dose: 1 mls/min Documented by: Azithromycin 500 mg/ Dextrose 255 mls @ 127.5 mls/hr IV DAILY@2100 [facility]; Protocol Stop: 04/08/21 23:29 Last Infusion: 04/02/21 02:48 Dose: Infused Documented by: Remdesivir 100 mg/ Sodium (Chloride) 250 mls @ 250 mls/hr IV Q24H [facility]; Protocol Stop: 04/05/21 20:59 Ondansetron HCl (Ondansetron Inj 2 Mg/Ml 2 Ml Vial) 4 mg IV Q6H PRN PRN Reason: Nausea Stop: 05/01/21 23:12 Polyethylene Glycol (Polyethylene (Miralax) 17 Gm Pack) 17 gm PO DAILY PRN PRN Reason: Constipation Stop: 05/01/21 23:12 Sodium Chloride (Sodium Chloride 0.9% 10ml Flush) 30 ml IV DAILY@2100 [facility] Stop: 04/05/21 21:01 Last Admin: 04/02/21 01:40 Dose: 30 ml Documented by: Testosterone (Testosterone Gel) [address] [facility] Stop: 05/02/21 08:59 Last Admin: 04/02/21 08:23 Dose: 1 appln Documented by: Vitamin D (Cholecalciferol 1,000 Units 25 Mcg Tab) 5,[address] [facility] Stop: 05/02/21 08:59 Last Admin: 04/02/21 08:24 Dose: 5,000 units Documented by: Zinc Sulfate (Zinc Sulfate 220 Mg Capsule) [address] [facility] Stop: 05/02/21 08:59 Last Admin: 04/02/21 08:24 Dose: 220 mg Documented by: PG Care Time/CCT Total # of Minutes Spent Total Time Spent with Patient: Total time spent is greater than 50% in coordination of care (as documented) at patient's floor/unit and/or counseling patient: Coding Level of Care Code 70679 Subseq Hosp Care Lvl 3 Diagnoses Acute respiratory failure with hypoxemia J96.01 Elevated d-dimer R79.89 Elevated transaminase level R74.01 Pneumonia due to 2019 novel coronavirus U07.1; J12.82 Panic attack F41.0
[2021-04-02] MEDS ORDERED: guaiFENesin 600 MG TABCR PO SCH (09:00)
[2021-04-02 10:16] LABS: Amphetamines+Metham, Urine Neg (Neg); Barbiturates, Urine Neg (Neg); Benzodiazepine, Urine Neg (Neg); Cocaine, Urine Neg (Neg); MDMA (Ecstacy), Urine Neg (Neg); Methadone, Urine Neg (Neg); Opiate, Urine Pos (Neg); Phencyclidine, Urine Neg (Neg)
--- NOTE | 2021-04-02 13:52 | Pulmonary Consultation ---
Date of Consultation April 02, 2021 Assessment & Plan (1) Acute respiratory failure with hypoxemia: (2) Pneumonia due to 2019 novel coronavirus: (3) Hemoptysis: CT chest 03/29/2021 personally reviewed: Bilateral peripheral patchy opacities appreciated upper and lower lobes, more pronounced in the lower lobes No significant mediastinal adenopathy Chest x-ray 04/01/21 personally reviewed: Portable film, diffuse patchy alveolar opacities appreciated bilaterally, worse compared to chest x-ray --Acute hypoxic respiratory failure Secondary to multilobar pneumonia from COVID-19 COVID-19 PCR positive 04/01/21 CRP 14.1, procalcitonin 0.47 --Hemoptysis Minimal Likely from coughing Plan: Continue with dexamethasone for total of 10 days Monitor CRP Patient currently on on 4 L saturating well --> no indication for Tocilizumab Patient does have minimal hemoptysis is likely from coughing. Would avoid flutter valve for the time being given the patient is able to bring up the phlegm I will decrease the Lovenox to daily instead of twice daily Continue with incentive spirometry Continue with guaifenesin Pulmonary will continue to follow peripherally. Call directly with any questions. Please note the above document was generated using voice recognition software. It may contain grammatical, syntax or spelling errors.Any formal questions or concerns about the content, text or information contained within the body of this dictation should be directly addressed to the provider for clarification. History of Present Illness Attending Physician: Sudeep Stubbs DO History of Present Illness 46-year-old male presented to the hospital with complaints of shortness of breath progressively getting worse He has been having symptoms since 03/23/2021 after returning from a trip from [place] His test was positive on 03/29/21. He was in the ED at that time but he was not short of breath so he was discharged home He came back because of worsening symptoms and hypoxia on room air Pulmonary were consulted for COVID-19 multilobar pneumonia At the time of examination patient was on 4 L facemask. He was not in any distress. He said he is feeling better after coming to the hospital. He has been able to cough up phlegm. Has been using incentive spirometry and going up to 2000ml Denies any chest pain, has been bringing up phlegm with few of them being blood- tinged No dysuria, no diarrhea. Social history: Non-smoker, no exposure secondhand smoke No history of asthma as a child Has dogs at home. No birds or poultry nearby Allergies Allergy/AdvReac Type Severity Reaction Status Date / Time No Known Allergies Allergy Verified 04/01/21 19:36 Home Medications Medication Instructions Recorded Confirmed Type multivitamin (Daily Multi-Vitamin) 1 tab PO QAM 11/15/20 04/01/21 History omega-3 fatty acids 1,000 mg 2,000 mg PO QAM cap 12/07/20 04/01/21 History capsule (Fish Oil Concentrate) albuterol sulfate 90 mcg/actuation 2 inh INHALATION Q6H PRN #8.5 g 03/29/21 04/01/21 Rx aerosol inhaler dexamethasone 6 mg tablet 6 mg PO DAILY #6 tab 03/29/21 04/01/21 Rx testosterone 1 % (50 mg/5 gram) 100 mg TD QAM 03/29/21 04/01/21 History transdermal gel packet (AndroGel) hydrocodone-homatropine 5 mg-1.5 5 - 10 ml PO Q6H PRN #100 ml 04/01/21 04/01/21 Rx mg/5 mL (5 mL) oral syrup (Hycodan) omeprazole 40 mg capsule,delayed 40 mg PO QAM 04/01/21 04/01/21 History release Patient History Surgical History History of colonoscopy History of hemorrhoidectomy History of shoulder surgery History of tooth extraction Family History Mother Myocardial infarction Breast cancer Colorectal cancer Malignant neoplasm of gastrointestinal tract Denies family history of Ovarian cancer Prostate cancer Social History Smoking Status: Never smoker Second Hand Exposure: Yes (Childhood); Do You Dip or Chew Tobacco: No; Hx Alcohol Use: Yes Alcohol type: beer Alcohol Intake Frequency: 2-3 x/Week Hx Substance Use: No Preferred Language: Sinhala Communication Ability: Effective Visual Impairment: No Limitations Hearing Ability: Normal Substance Abuse Nurse Required: No Beliefs That Will Affect Care: None marital status: Current Living Situation: Spouse and Family Current Living Situation Comment: , father, 2 children current occupational status: employed current occupation: software [employer] How many Children do You have: 2 Other Information That Helps Us Care for You: No Feels Safe at Home: Yes Safety Concerns: Feels Safe At This Time Childhood Exposure to Second-Hand Smoke: Yes caffeine: No during the past year weight has: remained stable Dental Care, Regularly: Yes Physical Activity Frequency: 1-2 Times per Week Seatbelt Use: always Sunscreen Use: Yes Assistive Devices: Oxygen - Continuous Review of Systems Review of Systems: All systems reviewed & are unremarkable except as noted in Subjective Physical Exam Physical Exam: Constitutional: No acute distress HEENT: EOMI, PERRLA Respiratory system: Decreased air entry bilaterally, no wheeze, no rhonchi, positive crackles bilateral lower lobes CVS: S1-S2 positive, no murmurs or gallops Abdomen: Soft, nontender, nondistended, positive bowel sounds x4 Extremities: +2 pulses bilaterally radialis/ dorsalis pedis, no cyanosis, no edema Neuro: Awake alert oriented x3 Psych: Normal mood and affect G/U: No [place] Skin: no rashes, warm and dry Lymphatic: no cervical or axillary lymphadenopathy Results & Data Results & Data ([facility]) Vital Signs (Past 12 Hours) Vital Signs Temp Pulse Pulse Resp BP Pulse Ox Pulse Ox 04/02/21 12:47 83 18 92 04/02/21 12:19 36.9 C 83 19 114/71 92 04/02/21 09:54 90 04/02/21 07:59 37.1 C 100 H 22 134/75 90 04/02/21 07:37 82 18 91 04/02/21 07:18 71 04/02/21 02:55 37.0 C 75 20 110/74 90 04/02/21 14:11 PG Care Time/CCT Total # of Minutes Spent Total Time Spent with Patient: Total time spent is greater than 50% in coordination of care (as documented) at patient's floor/unit and/or counseling patient: Coding Level of Care Code 19832 Inpt Consult Level 4 Diagnoses Acute respiratory failure with hypoxemia J96.01 Pneumonia due to 2019 novel coronavirus U07.1; J12.82 Hemoptysis R04.2
[2021-04-02 14:35] LABS: Hematocrit (blood only) 43.2 % (42-52); Hemoglobin 14.6 g/dL (14.0-18.0); Immature Granulocytes # (auto) 0.05 K/uL (0.00-0.02); Immature Granulocytes % (auto) 0.4 %; Lymphocytes % (auto) 3.8 %; Mean Corpuscular Hemoglobin 31.1 pg (25-34); Mean Corpuscular Hgb Conc 33.8 g/dL (32-36); Mean Corpuscular Volume 92.1 fL (80-100); Mean Platelet Volume 11.7 fL (7.4-10.4); Monocytes # (auto) 0.52 K/uL (0.11-0.59); Monocytes % (auto) 3.9 %; Neutrophils # (auto) 12.15 K/uL (1.4-6.5); Neutrophils % (auto) 91.9 %; Platelet Count 204 K/uL (130-400); RDW Coefficient of Variation 14.7 % (11.5-14.5); Red Blood Count 4.69 M/uL (4.7-6.1); White Blood Count 13.22 K/uL (4.8-10.8)
[2021-04-02 15:21] LABS: Albumin Globulin Ratio 0.5 (0.9-2); Albumin Level 2.6 gm/dl (3.4-5.0); BUN Creatinine Ratio 17.2 (10-20); Bilirubin,Total 0.5 mg/dl (0.2-1); Calcium 8.6 mg/dl (8.5-10.1); Creatinine Clr Calc Pharmacy 107.3 ml/min; Est GFR (African American) 122.8 ml/min; Globulin 5.1 gm/dl (2.5-4.0); Potassium 4.2 mmol/L (3.5-5.1); Total Protein 7.7 gm/dl (6.4-8.2)
[2021-04-02] MEDS: REMDESIVIR 100mg: Days 2-5 IV SCH (19:53)
[2021-04-02] MEDS ORDERED: LORazepam 1 MG TAB PO STA (21:23)
[2021-04-02] MEDS ORDERED: LORazepam 1 MG TAB ONE (21:31)
--- NOTE | 2021-04-03 01:50 | Billing Data ---
Date of Service April 03, 2021 Coding Level of Care Code 56761 Initial Inpt Care Lvl 3
[2021-04-03] MEDS: ALBUT/IPRATROP 3MG/0.5MG NEB 3 ML VIAL NEB SCH ×2 (03:41→07:53)
[2021-04-03] MEDS ORDERED: FUROSEMIDE 20 MG in SYRINGE 0 ML IV ONE ×2 (07:30→16:30)
--- NOTE | 2021-04-03 07:50 | Pulmonology Progress Note ---
Date of Service April 03, 2021 Assessment & Plan (1) Acute respiratory failure with hypoxemia: (2) Pneumonia due to 2019 novel coronavirus: (3) Hemoptysis: Plan: CT chest 03/29/2021 personally reviewed: Bilateral peripheral patchy opacities appreciated upper and lower lobes, more pronounced in the lower lobes No significant mediastinal adenopathy Chest x-ray 04/01/21 personally reviewed: Portable film, diffuse patchy alveolar opacities appreciated bilaterally, worse compared to chest x-ray --Acute hypoxic respiratory failure Secondary to multilobar pneumonia from COVID-19 COVID-19 PCR positive 04/01/21 CRP 14.1, procalcitonin 0.47 --Hemoptysis Minimal Likely from coughing Plan: In/out: +334, urine output 751 Chest x-ray from today shows worsening of the pulmonary infiltrates Patient's oxygen requirements have significantly gone up since yesterday Given the elevated CRP and increasing oxygen demand, I will give the patient Tocilizumab Patient AST is just about 3 times the bowel limit of normal. Continue with incentive spirometry Continue with guaifenesin Please note the above document was generated using voice recognition software. It may contain grammatical, syntax or spelling errors.Any formal questions or concerns about the content, text or information contained within the body of this dictation should be directly addressed to the provider for clarification. Admission and Anticipated Discharge Date Admission Date: April 01, 2021 Subjective Patient seen and examined at bedside. No acute distress. Overnight patient's oxygen requirement significantly increased. He was transferred to telemetry unit so that he could be given Tocilizumab. At the time of examination he was on 40 L, 60% saturating 95-96% Patient was not in any acute distress. He said he is feeling better after being on high flow. He is cough is decreased in amount. Is not bringing up any phlegm. No more hemoptysis. Review of Systems Review of Systems: All systems reviewed & are unremarkable except as noted in Subjective Physical Exam Physical Exam: Constitutional: No acute distress HEENT: EOMI, PERRLA Respiratory system: Decreased air entry bilaterally, no wheeze, no rhonchi, positive crackles bilateral lower lobes CVS: S1-S2 positive, no murmurs or gallops Abdomen: Soft, nontender, nondistended, positive bowel sounds x4 Extremities: +2 pulses bilaterally radialis/ dorsalis pedis, no cyanosis, no edema Neuro: Awake alert oriented x3 Psych: Normal mood and affect G/U: No Robertson Skin: no rashes, warm and dry Lymphatic: no cervical or axillary lymphadenopathy Results & Data Results & Data ([facility]) Vital Signs (Past 12 Hours) Vital Signs Temp Pulse Pulse Pulse Resp BP Pulse Ox 04/03/21 07:47 76 04/03/21 07:14 36.8 C 85 22 109/68 97 04/03/21 04:26 04/03/21 04:00 100 H 24 93 04/03/21 03:41 87 22 89 L 04/03/21 03:10 36.8 C 83 24 119/74 87 L 04/03/21 02:27 04/03/21 00:43 76 04/02/21 22:24 37.0 C 90 20 115/70 91 04/02/21 22:03 04/02/21 20:23 85 20 93 04/02/21 20:03 36.4 C L 81 22 116/78 92 Pulse Ox 04/03/21 07:47 04/03/21 07:14 04/03/21 04:26 96 04/03/21 04:00 04/03/21 03:41 04/03/21 03:10 04/03/21 02:27 89 L 04/03/21 00:43 04/02/21 22:24 04/02/21 22:03 90 04/02/21 20:23 04/02/21 20:03 04/02/21 14:11 04/02/21 14:11 PG Care Time/CCT Total # of Minutes Spent Total Time Spent with Patient: Total time spent is greater than 50% in coor dination of care (as documented) at patient's floor/unit and/or counseling patient: [place] [address] Subseq Hosp Care Lvl 3 Patient Type Established Diagnoses Acute respiratory failure with hypoxemia J96.01 Pneumonia due to 2019 novel coronavirus U07.1; J12.82 Hemoptysis R04.2
--- NOTE | 2021-04-03 07:59 | XRay Report ---
SINGLE VIEW CHEST CLINICAL HISTORY: Hypoxia. Covid. FINDINGS: An AP, portable, upright chest radiograph is compared to study dated 04/01/2021 and correlate d with chest CT dated 03/29/2021. The cardiomediastinal silhouette is unremarkable. Multifocal airspac e consolidation is seen throughout both lungs. No large pleural effusion or pneumothorax is seen. The bony thorax is grossly intact. IMPRESSION: Multifocal airspace consolidation is consistent with the reported history of a viral pneu monia. This has worsened as compared to the 04/01/2021 examination. Continued follow-up to resolution i s recommended. ACT 112: Negative or not required by law. Electronically signed by: Krunal Torres M.D. 04/03/2021 7:58 AM
[2021-04-03] MEDS: dexAMETHasone 6 MG in SYRINGE 0 ML IV SCH (08:03)
[2021-04-03] MEDS: TESTOSTERONE GEL TOP SCH (08:03)
[2021-04-03] MEDS: guaiFENesin 600 MG TABCR PO SCH ×2 (08:03→21:57)
[2021-04-03] MEDS: LORazepam 0.5 MG TAB PO PRN ×2 (08:03→17:00)
[2021-04-03] MEDS: ZINC SULFATE 220 MG CAPSULE PO SCH (08:03)
[2021-04-03] MEDS: CHOLECALCIFEROL 1,000 UNITS 25 MCG TAB PO SCH (08:04)
[2021-04-03] MEDS: ENOXAPARIN INJ 40 MG/0.4 ML SYR SQ SCH (08:05)
--- NOTE | 2021-04-03 08:32 | Hospitalist Progress Note ---
Date of Service April 03, 2021 Assessment & Plan (1) Acute respiratory failure with hypoxemia: Plan: Mr. Schmitt is a 46 yo M with a known COVID 19 infection who presented with ongoing symptoms despite oral dexamethasone therapy. symptoms began 03/23, started on dexamethasone on 03/30 when he was in the ED, he was around day 10 of illness at time of admission continue dexamethasone 6mg IV daily x 10 days, day 5 today Remdesivir, day 3 continue Zithromax x 5 days Lasix 20mg IV this morning, try to keep negative fluid balance CXR 04/03 with worsening bilateral infiltrates, CRP was 14 yesterday will move to PCU, give Tociluzumab as his condition has deteriorated quickly in 48 hours appreciate recommendations from Dr. Olivera, he will assist in managing patient again, encouraged him to lay prone as much as possible (2) Pneumonia due to 2019 novel coronavirus: Plan: patient is not vaccinated, recent travel to [place], symptoms on 03/23, thus he is around day 10 of illness on presentation CXR with bilateral infiltrates treatment with dexamethasone, Zithromax, Remdesivir give Tociluzumab on 04/03 due to worsening condition stop fluids, keep lungs dry, give lasix 20mg IV today (3) Elevated d-dimer: Plan: - level at 510 on admission - Lovenox 40mg SQ q12 per covid protocol initially reduced to once a day due to hemoptysis, now patient is refusing will order SCDs (4) Elevated transaminase level: Plan: - AST elevated to 133, ALT to 154 - likely secondary to acute viral infection - avoid Tylenol use/hepatotoxins - trend CMP (5) Panic attack: Plan: very anxious at times, driven by respiratory rate relieved with Ativan 0.5mg PO, will order PRN Admission and Anticipated Discharge Date Admission Date: April 01, 2021 Subjective patient deteriorated over night, went from 4L oxy mask to HFNC, currently at 40L and 60% FiO2 he admits to feeling worse, coughing a lot, bringing up some sputum, some streaks of blood appetite is okay, not great repeat CXR this morning shows worsening infiltrates bilaterally discussed with Dr Olivera, will move to 205, give Tociluzumab gave the patient Lasix 20mg IV this morning, he just got it so not sure if he will diurese, want to keep neg fluid balance called his to provide an update Review of Systems Review of Systems: All systems reviewed & are unremarkable except as noted in Subjective Constitutional: + fatigue and + weakness; no fever Respiratory: + cough, + dyspnea and + dyspnea on exertion Cardiovascular: no chest pain and no edema Gastrointestinal: no abdominal pain, no nausea, no vomiting, no constipation and no diarrhea/loose stools Physical Exam Constitutional: well developed, well nourished, + ill appearing and + in distress (mild, respiratory); + uncomfortable Neck: trachea midline, no thyromegaly Respiratory: + labored breathing, + cough and + tachypneic Auscultation: + crackles (bilaterally); no rales, no rhonchi and no wheezes Cardiovascular: Rate/Rhythm: regular rate and regular rhythm Heart Sounds: normal S1 and normal S2; no murmur Extremities: normal capillary refill; no edema Gastrointestinal (Abdomen): normal bowel sounds, soft, nontender, no hepatosplenomegaly Musculoskeletal: no cyanosis or clubbing, extremities motor strength 5/5 Skin: no rashes, warm and dry Neurologic: patellar DTR's 2+ bilat, sensation intact and PERRL, EOMI, accommodation nl, no face palsy, no dysarthria Psychiatric: Orientation: alert and oriented x 3 Affect: + anxious affect Results & Data Results & Data ([facility]) Vital Signs (Past 12 Hours) Vital Signs Temp Pulse Pulse Pulse Resp BP Pulse Ox 04/03/21 07:54 88 22 91 04/03/21 07:47 76 04/03/21 07:14 36.8 C 85 22 109/68 97 04/03/21 04:26 04/03/21 04:00 100 H 24 93 04/03/21 03:41 87 22 89 L 04/03/21 03:10 36.8 C 83 24 119/74 87 L 04/03/21 02:27 04/03/21 00:43 76 04/02/21 22:24 37.0 C 90 20 115/70 91 04/02/21 22:03 04/02/21 20:23 85 20 93 Pulse Ox 04/03/21 07:54 04/03/21 07:47 04/03/21 07:14 04/03/21 04:26 96 04/03/21 04:00 04/03/21 03:41 04/03/21 03:10 04/03/21 02:27 89 L 04/03/21 00:43 04/02/21 22:24 04/02/21 22:03 90 04/02/21 20:23 Laboratory Results Laboratory Results - last 24 hr 04/02/21 04/02/21 04/02/21 08:09 08:09 09:50 WBC RBC Hgb Hct MCV MCH MCHC RDW Std Deviation RDW Coeff of Liset Plt Count MPV Immature Gran % (Auto) Neut % (Auto) Lymph % (Auto) [place] % (Auto) Eos % (Auto) Baso % (Auto) Neut # (Auto) Lymph # (Auto) [place] # (Auto) Eos # (Auto) Baso # (Auto) Immature Gran # (Auto) Sodium Potassium Chloride Carbon Dioxide Anion Gap BUN Creatinine Est Cr Clr Drug Dosing Est GFR ( Amer) Est GFR (Non-Af Amer) BUN/Creatinine Ratio Glucose Calcium Total Bilirubin AST ALT Alkaline Phosphatase C-Reactive Protein 14.10 H Total Protein Albumin Globulin Albumin/Globulin Ratio Urine Opiates Screen Pos H U Codeine Confrm GC/MS Ur Morphine (GC/MS) Ur Hydrocodone (GC/MS) Ur Norhydrocodone Ur Noroxycodone Urine Oxycodone (GC/MS) U Oxymorphone GC/MS Ur Methadone, Qual Neg Ur Hydromorphone (GC/MS) Urine Barbiturates Neg Ur Phencyclidine (PCP) Neg U Amphetamin/Meth Scrn Neg MDMA (Ecstasy) Screen Neg U Benzodiazepines Scrn Neg Ur Cocaine Metabolite Neg U Marijuana (THC) Screen Neg Drug Screen Comment Ethyl Alcohol mg/dL < 3.0 04/02/21 04/02/21 04/02/21 09:50 14:11 14:11 WBC 13.22 H RBC 4.69 L Hgb 14.6 Hct 43.2 MCV 92.1 MCH 31.1 MCHC 33.8 RDW Std Deviation 50.0 H RDW Coeff of Liset 14.7 H Plt Count 204 MPV 11.7 H Immature Gran % (Auto) 0.4 Neut % (Auto) 91.9 Lymph % (Auto) 3.8 [place] % (Auto) 3.9 Eos % (Auto) 0.0 Baso % (Auto) 0.0 Neut # (Auto) 12.15 H Lymph # (Auto) 0.50 L [place] # (Auto) 0.52 Eos # (Auto) 0.00 Baso # (Auto) 0.00 Immature Gran # (Auto) 0.05 H Sodium 135 L Potassium 4.2 D Chloride 101 Carbon Dioxide 28 Anion Gap 6.0 BUN 15 Creatinine 0.85 Est Cr Clr Drug Dosing 107.3 Est GFR ( Amer) 122.8 Est GFR (Non-Af Amer) 106.0 BUN/Creatinine Ratio 17.2 Glucose 130 H Calcium 8.6 Total Bilirubin 0.5 AST 117 H ALT 166 H Alkaline Phosphatase 39 L C-Reactive Protein Total Protein 7.7 Albumin 2.6 L Globulin 5.1 H Albumin/Globulin Ratio 0.5 L Urine Opiates Screen U Codeine Confrm GC/MS Pending Ur Morphine (GC/MS) Pending Ur Hydrocodone (GC/MS) Pending Ur Norhydrocodone Pending Ur Noroxycodone Pending Urine Oxycodone (GC/MS) Pending U Oxymorphone GC/MS Pending Ur Methadone, Qual Ur Hydromorphone (GC/MS) Pending Urine Barbiturates Ur Phencyclidine (PCP) U Amphetamin/Meth Scrn MDMA (Ecstasy) Screen U Benzodiazepines Scrn Ur Cocaine Metabolite U Marijuana (THC) Screen Drug Screen Comment Pending Ethyl Alcohol mg/dL Diagnostic Findings SINGLE VIEW CHEST CLINICAL HISTORY: Hypoxia. Covid. FINDINGS: An AP, portable, upright chest radiograph is compared to study dated 04/01/2021 and correlated with chest CT dated 03/29/2021. The cardiomediastinal si lhouette is unremarkable. Multifocal airspace consolidation is seen throughout both lungs. No large pleural effusion or pneumothorax is seen. The bony thorax is grossly intact. IMPRESSION: Multifocal airspace consolidation is consistent with the reported history of a viral pneumonia. This has worsened as compared to the 04/01/2021 examination. Continued follow-up to resolution is recommended. Medications Administered Current Inpatient Medications Albuterol (Albut/Ipratrop 3mg/0.5mg Neb 3 Ml Vial) 3 ml NEB Q4R [facility] Stop: 05/02/21 22:59 Last Admin: 04/03/21 07:53 Dose: 3 ml Documented by: Enoxaparin Sodium (Enoxaparin Inj 40 Mg/0.4 Ml Syr) 40 mg SQ DAILY [facility] Stop: 05/03/21 08:59 Last Admin: 04/03/21 08:05 Dose: Not Given Documented by: Guaifenesin (Guaifenesin 600 Mg Tabcr) 1,200 mg PO Q12 [facility] Stop: 05/02/21 08:59 Last Admin: 04/03/21 08:03 Dose: 1,200 mg Documented by: Dexamethasone 6 mg/ Syringe 1.5 mls @ 1 mls/min IV DAILY [facility] Stop: 04/10/21 09:02 Last Admin: 04/03/21 08:03 Dose: 1 mls/min Documented by: Azithromycin 500 mg/ Dextrose 255 mls @ 127.5 mls/hr IV DAILY@2100 [facility]; Protoco l Stop: 04/08/21 23:29 Last Infusion: 04/02/21 23:49 Dose: Infused Documented by: Remdesivir 100 mg/ Sodium (Chloride) 250 mls @ 250 mls/hr IV Q24H [facility]; Protocol Stop: 04/05/21 20:59 Last Infusion: 04/02/21 21:18 Dose: Infused Documented by: Tocilizumab 400 mg/Tocilizumab 200 mg/ Sodium Chloride 100 mls @ 100 mls/hr IV ONE ONE Stop: 04/03/21 09:59 Lorazepam (Lorazepam 0.5 Mg Tab) 0.5 mg PO Q8 PRN PRN Reason: Anxiety Stop: 05/02/21 08:52 Last Admin: 04/03/21 08:03 Dose: 0.5 mg Documented by: Ondansetron HCl (Ondansetron Inj 2 Mg/Ml 2 Ml Vial) 4 mg IV Q6H PRN PRN Reason: Nausea Stop: 05/01/21 23:12 Polyethylene Glycol (Polyethylene (Miralax) 17 Gm Pack) 17 gm PO DAILY PRN PRN Reason: Constipation Stop: 05/01/21 23:12 Sodium Chloride (Sodium Chloride 0.9% 10ml Flush) 30 ml IV DAILY@2100 [facility] Stop: 04/05/21 21:01 Last Admin: 04/02/21 21:46 Dose: 30 ml Documented by: Testosterone (Testosterone Gel) 1 appln TOP QAM [facility] Stop: 05/02/21 08:59 Last Admin: 04/03/21 08:03 Dose: 1 appln Documented by: Vitamin D (Cholecalciferol 1,000 Units 25 Mcg Tab) 5,000 units PO QAM [facility] Stop: 05/02/21 08:59 Last Admin: 04/03/21 08:04 Dose: 5,000 units Documented by: Zinc Sulfate (Zinc Sulfate 220 Mg Capsule) 220 mg PO QAM [facility] Stop: 05/02/21 08:59 Last Admin: 04/03/21 08:03 Dose: 220 mg Documented by: PG Care Time/CCT Total # of Minutes Spent Total Time Spent: 35 Total Time Spent with Patient: Total time spent is greater than 50% in coordination of care (as documented) at patient's floor/unit and/or counseling patient: Coding Level of Care Code 84933 Subseq Hosp Care Lvl 3 (25 - SIGNIFICANT, SEPARATELY IDENTIFIABLE ) Diagnoses Acute respiratory failure with hypoxemia J96.01 Pneumonia due to 2019 novel coronavirus U07.1; J12.82 Elevated d-dimer R79.89 Elevated transaminase level R74.01 Panic attack F41.0
[2021-04-03] MEDS ORDERED: TOCILIZUMAB 400 MG, TOCILIZUMAB 200 MG in 0.9 % SODIUM CHLORIDE 70 ML IV ONE (09:00)
[2021-04-03] MEDS ORDERED: ALBUT/IPRATROP 3MG/0.5MG NEB 3 ML VIAL NEB PRN (10:11)
[2021-04-03] MEDS ORDERED: ENOXAPARIN INJ 40 MG/0.4 ML SYR SQ ONE (16:30)
[2021-04-03] MEDS: REMDESIVIR 100mg: Days 2-5 IV SCH (19:32)
[2021-04-03] MEDS: AZITHROMYCIN 500 MG in DEXTROSE 5% 250 ML IV SCH (21:56)
[2021-04-03] MEDS: SODIUM CHLORIDE 0.9% 10ML FLUSH IV SCH (21:56)
[2021-04-04] MEDS: LORazepam 0.5 MG TAB PO PRN ×2 (04:43→22:09)
--- NOTE | 2021-04-04 05:46 | Electrocardiogram Report ---
Test Reason : Blood Pressure : / mmHG Vent. Rate : 083 BPM Atrial Rate : 083 BPM P-R Int : 142 ms QRS Dur : 080 ms QT Int : 366 ms P-R-T Axes : 048 036 -14 degrees QTc Int : 430 ms Poor data quality, interpretation may be adversely affected Normal sinus rhythm When compared with ECG of 29-MAR-2021 11:08, No significant change was found Confirmed by Ramana Lizama ([id number]) on 04/04/2021 5:45:41 AM Referred By: REFERRED SELF Confirmed By:Ramana Lizama
--- NOTE | 2021-04-04 06:10 | Communication Note ---
Date of Service: April 04, 2021 Respiratory therapy contacted caleb REEDER to recommend duonebs qid + duonebs q4h prn - orders placed.
[2021-04-04 06:25] LABS: Hematocrit (blood only) 44.6 % (42-52); Hemoglobin 14.9 g/dL (14.0-18.0); Mean Corpuscular Hemoglobin 30.9 pg (25-34); Mean Corpuscular Hgb Conc 33.4 g/dL (32-36); Mean Corpuscular Volume 92.5 fL (80-100); Mean Platelet Volume 10.8 fL (7.4-10.4); Platelet Count 311 K/uL (130-400); RDW Coefficient of Variation 14.5 % (11.5-14.5); RDW Standard Deviation 49.1 fL (36.4-46.3); Red Blood Count 4.82 M/uL (4.7-6.1)
[2021-04-04] MEDS: ALBUT/IPRATROP 3MG/0.5MG NEB 3 ML VIAL NEB SCH ×4 (06:57→19:17)
[2021-04-04 07:10] LABS: BUN Creatinine Ratio 16.7 (10-20); C Reactive Protein 5.12 mg/dl (0-0.29); Calcium 8.4 mg/dl (8.5-10.1); Creatinine Clr Calc Pharmacy 101.3 ml/min; Est GFR (Non-African American) 103.5 ml/min; Potassium 3.4 mmol/L (3.5-5.1)
[2021-04-04] MEDS ORDERED: FUROSEMIDE 20 MG in SYRINGE 0 ML IV ONE ×2 (07:30→16:00)
[2021-04-04] MEDS ORDERED: POTASSIUM CHLORIDE CRTAB 20 MEQ TABCR PO SCH (09:00)
[2021-04-04] MEDS: dexAMETHasone 6 MG in SYRINGE 0 ML IV SCH (09:05)
[2021-04-04] MEDS: guaiFENesin 600 MG TABCR PO SCH ×2 (09:06→22:09)
[2021-04-04] MEDS: ZINC SULFATE 220 MG CAPSULE PO SCH (09:06)
[2021-04-04] MEDS: CHOLECALCIFEROL 1,000 UNITS 25 MCG TAB PO SCH (09:06)
[2021-04-04] MEDS: ENOXAPARIN INJ 40 MG/0.4 ML SYR SQ SCH (09:06)
[2021-04-04] MEDS: TESTOSTERONE GEL TOP SCH (09:10)
[2021-04-04 10:21] LABS: Codeine Urine NEGATIVE ng/mL (<50); Hydrocodone Urine 181 ng/mL (<50); Hydromor Urine 113 ng/mL (<50); Morphine Urine NEGATIVE ng/mL (<50); Norhydrocodone Conf Ur NEGATIVE ng/mL (<50); Noroxycodone Urine NEGATIVE ng/mL (<50); Oxycodone Urine NEGATIVE ng/mL (<50); Oxymorph Urine NEGATIVE ng/mL (<50)
--- NOTE | 2021-04-04 12:09 | Pulmonology Progress Note ---
Date of Service April 04, 2021 Assessment & Plan (1) Acute respiratory failure with hypoxemia: (2) Pneumonia due to 2019 novel coronavirus: (3) Hemoptysis: Plan: CT chest 03/29/2021 personally reviewed: Bilateral peripheral patchy opacities appreciated upper and lower lobes, more pronounced in the lower lobes No significant mediastinal adenopathy Chest x-ray 04/01/21 personally reviewed: Portable film, diffuse patchy alveolar opacities appreciated bilaterally, worse compared to chest x-ray --Acute hypoxic respiratory failure Secondary to multilobar pneumonia from COVID-19 COVID-19 PCR positive 04/01/21 CRP 14.1--> 5.12, procalcitonin 0.47 S/p Tocilizumab 04/03/2021 --Hemoptysis Resolved Likely from coughing Plan: In/out: -3.5 L, urine output 4050 Repeat chest x-ray in the morning Continue with awake proning Continue with incentive spirometry Continue with guaifenesin Please note the above document was generated using voice recognition software. It may contain grammatical, syntax or spelling errors.Any formal questions or concerns about the content, text or information contained within the body of this dictation should be directly addressed to the provider for clarification. Admission and Anticipated Discharge Date Admission Date: April 01, 2021 Subjective Patient seen and examined at bedside. No acute distress, no adverse events ov ernight. Patient has been using incentive spirometer and flutter valve. At the time of examination patient was saturating 89% on 40 L, 40% high flow Does complain of some chest pain when he coughs a lot. No hemoptysis. Is able to bring up phlegm. Denies any headache, no nausea or vomiting. Fair appetite. Review of Systems Review of Systems: All systems reviewed & are unremarkable except as noted in Subjective Physical Exam Physical Exam: Constitutional: No acute distress HEENT: EOMI, PERRLA Respiratory system: Decreased air entry bilaterally, no wheeze, no rhonchi, positive crackles bilateral lower lobes CVS: S1-S2 positive, no murmurs or gallops Abdomen: Soft, nontender, nondistended, positive bowel sounds x4 Extremities: +2 pulses bilaterally radialis/ dorsalis pedis, no cyanosis, no edema Neuro: Awake alert oriented x3 Psych: Normal mood and affect G/U: No Robertson Skin: no rashes, warm and dry Lymphatic: no cervical or axillary lymphadenopathy Results & Data Results & Data ([facility]) Vital Signs (Past 12 Hours) Vital Signs Temp Pulse Pulse Pulse Resp BP Pulse Ox 04/04/21 11:35 36.8 C 77 22 100/70 88 L 04/04/21 10:48 81 19 98 04/04/21 09:00 37.1 C 85 24 112/66 89 L 04/04/21 07:27 69 04/04/21 06:58 70 20 90 04/04/21 05:36 71 24 90 04/04/21 04:43 36.8 C 81 24 105/81 93 04/04/21 03:10 57 L 20 93 Pulse Ox 04/04/21 11:35 04/04/21 10:48 04/04/21 09:00 04/04/21 07:27 04/04/21 06:58 04/04/21 05:36 04/04/21 04:43 93 04/04/21 03:10 04/04/21 06:11 04/04/21 06:11 PG Care Time/CCT Total # of Minutes Spent Total Time Spent with Patient: Total time spent is greater than 50% in coordination of care (as documented) at patient's floor/unit and/or counseling patient: Coding Level of Care Code 74514 Subseq Hosp Care Lvl 3 Diagnoses Acute respiratory failure with hypoxemia J96.01 Pneumonia due to 2019 novel coronavirus U07.1; J12.82 Hemoptysis R04.2
--- NOTE | 2021-04-04 12:11 | Hospitalist Progress Note ---
Date of Service April 04, 2021 Assessment & Plan (1) Acute respiratory failure with hypoxemia: Plan: Mr. Schmitt is a 46 yo M with a known COVID 19 infection who presented with ongoing symptoms despite oral dexamethasone therapy. symptoms began 03/23, started on dexamethasone on 03/30 when he was in the ED, he was around day 10 of illness at time of admission continue dexamethasone 6mg IV daily x 10 days, day 6 today Remdesivir, day 4 continue Zithromax x 5 days, day 4 Lasix 20mg IV BID for now, responding well, lungs dry, keep neg fluid balance CXR 04/03 with worsening bilateral infiltrates, CRP was 14 on 04/02, down to 5 today received Tociluzumab on 04/03 again, encouraged him to lay prone as much as possible, looking better today (2) Pneumonia due to 2019 novel coronavirus: Plan: patient is not vaccinated, recent travel to [place], symptoms on 03/23, thus he is around day 10 of illness on presentation CXR with bilateral infiltrates treatment with dexamethasone, Zithromax, Remdesivir gave Tociluzumab on 04/03 due to worsening condition stop fluids, keep lungs dry, give lasix 20mg IV BID, follow renal function, Cr stable (3) Elevated d-dimer: Plan: - level at 510 on admission - Lovenox 40mg SQ q12 per covid protocol initially reduced to once a day due to hemoptysis (4) Elevated transaminase level: Plan: - AST elevated to 133, ALT to 154 - likely secondary to acute viral infection - avoid Tylenol use/hepatotoxins - trend CMP (5) Panic attack: Plan: very anxious at times, driven by respiratory rate relieved with Ativan 0.5mg PO, will order PRN (6) Hypokalemia: Plan: 3.4, from Lasix use place on 20mEq TID, repeat BMP in AM Admission and Anticipated Discharge Date Admission Date: April 01, 2021 Subjective patient feeling better, sitting up in a chair, eating okay, about 1/3 of his lunch still at 40L and 40% FiO2 great response to Lasix, give it again this morning and this afternoon CRP down to 5 from 14 Cr stable, K is 3.4, will give replacement spoke with RN about the plan updated his over the phone Review of Systems Review of Systems: All systems reviewed & are unremarkable except as noted in Subjective Respiratory: + cough, + dyspnea, + dyspnea on exertion and + pain with cough (substernal) Cardiovascular: + chest pain Gastrointestinal: + early satiety Physical Exam Constitutional: well developed, well nourished and + ill appearing; + uncomfortable and not in distress Neck: trachea midline, no thyromegaly Respiratory: + cough and + tachypneic; no respiratory distress and no labored breathing Auscultation: + crackles (bilaterally); no rales, no rhonchi and no wheezes Cardiovascular: Rate/Rhythm: regular rate and regular rhythm Heart Sounds: normal S1 and normal S2; no murmur Extremities: normal capillary refill; no edema Gastrointestinal (Abdomen): normal bowel sounds, soft, nontender, no hepatosplenomegaly Musculoskeletal: no cyanosis or clubbing, extremities motor strength 5/5 Skin: no rashes, warm and dry Neurologic: patellar DTR's 2+ bilat, sensation intact and PERRL, EOMI, accommo dation nl, no face palsy, no dysarthria Psychiatric: Orientation: alert and oriented x 3 Affect: + anxious affect Results & Data Results & Data ([facility]) Vital Signs (Past 12 Hours) Vital Signs Temp Pulse Pulse Pulse Resp BP Pulse Ox 04/04/21 11:35 36.8 C 77 22 100/70 88 L 04/04/21 10:48 81 19 98 04/04/21 09:00 37.1 C 85 24 112/66 89 L 04/04/21 07:27 69 04/04/21 06:58 70 20 90 04/04/21 05:36 71 24 90 04/04/21 04:43 36.8 C 81 24 105/81 93 04/04/21 03:10 57 L 20 93 Pulse Ox 04/04/21 11:35 04/04/21 10:48 04/04/21 09:00 04/04/21 07:27 04/04/21 06:58 04/04/21 05:36 04/04/21 04:43 93 04/04/21 03:10 Laboratory Results Laboratory Results - last 24 hr 04/02/21 04/04/21 04/04/21 09:50 06:11 06:11 WBC 5.60 RBC 4.82 Hgb 14.9 Hct 44.6 MCV 92.5 MCH 30.9 MCHC 33.4 RDW Std Deviation 49.1 H RDW Coeff of Liset 14.5 Plt Count 311 D MPV 10.8 H Sodium 135 L Potassium 3.4 L D Chloride 98 Carbon Dioxide 32 Anion Gap 5.0 BUN 15 Creatinine 0.90 Est Cr Clr Drug Dosing 101.3 Est GFR ( Amer) 120.0 Est GFR (Non-Af Amer) 103.5 BUN/Creatinine Ratio 16.7 Glucose 89 Calcium 8.4 L C-Reactive Protein 5.12 H U Codeine Confrm GC/MS NEGATIVE Ur Morphine (GC/MS) NEGATIVE Ur Hydrocodone (GC/MS) 181 H Ur Norhydrocodone NEGATIVE Ur Noroxycodone NEGATIVE Urine Oxycodone (GC/MS) NEGATIVE U Oxymorphone GC/MS NEGATIVE Ur Hydromorphone (GC/MS) 113 H Drug Screen Comment SEE NOTE Medications Administered Current Inpatient Medications Albuterol (Albut/Ipratrop 3mg/0.5mg Neb 3 Ml Vial) 3 ml NEB Q4R PRN PRN Reason: Shortness Of Breath Or Wheezing Stop: 05/02/21 22:59 Last Admin: 04/04/21 05:36 Dose: 3 ml Documented by: Albuterol (Albut/Ipratrop 3mg/0.5mg Neb 3 Ml Vial) 3 ml NEB QIDR [facility] Stop: 05/04/21 06:59 Last Admin: 04/04/21 10:46 Dose: 3 ml Documented by: Enoxaparin Sodium (Enoxaparin Inj 40 Mg/0.4 Ml Syr) 40 mg SQ DAILY [facility] Stop: 05/03/21 08:59 Last Admin: 04/04/21 09:06 Dose: 40 mg Documented by: Guaifenesin (Guaifenesin 600 Mg Tabcr) 1,200 mg PO Q12 [facility] Stop: 05/02/21 08:59 Last Admin: 04/04/21 09:06 Dose: 1,200 mg Documented by: Dexamethasone 6 mg/ Syringe 1.5 mls @ 1 mls/min IV DAILY [facility] Stop: 04/10/21 09:02 Last Admin: 04/04/21 09:05 Dose: 1 mls/min Documented by: Azithromycin 500 mg/ Dextrose 255 mls @ 127.5 mls/hr IV DAILY@2100 [facility]; Protocol Stop: 04/08/21 23:29 Last Infusion: 04/04/21 00:20 Dose: Infused Documented by: Remdesivir 100 mg/ Sodium (Chloride) 250 mls @ 250 mls/hr IV Q24H [facility]; Protocol Stop: 04/05/21 20:59 Last Infusion: 04/03/21 21:56 Dose: Infused Documented by: Furosemide 20 mg/ Syringe 2 mls @ 4 mls/min IV ONE ONE Stop: 04/04/21 16:01 Lorazepam (Lorazepam 0.5 Mg Tab) 0.5 mg PO Q8 PRN PRN Reason: Anxiety Stop: 05/02/21 08:52 Last Admin: 04/04/21 04:43 Dose: 0.5 mg Documented by: Ondansetron HCl (Ondansetron Inj 2 Mg/Ml 2 Ml Vial) 4 mg IV Q6H PRN PRN Reason: Nausea Stop: 05/01/21 23:12 Polyethylene Glycol (Polyethylene (Miralax) 17 Gm Pack) 17 gm PO DAILY PRN PRN Reason: Constipation Stop: 05/01/21 23:12 Potassium Chloride (Potassium Chloride Crtab 20 Meq Tabcr) 20 meq PO TID [facility] Stop: 05/04/21 13:59 Sodium Chloride (Sodium Chloride 0.9% 10ml Flush) 30 ml IV DAILY@2100 [facility] Stop: 04/05/21 21:01 Last Admin: 04/03/21 21:56 Dose: 30 ml Documented by: Testosterone (Testosterone Gel) 1 appln [facility] Stop: 05/02/21 08:59 Last Admin: 04/04/21 09:10 Dose: 1 appln Documented by: Vitamin D (Cholecalciferol 1,000 Units 25 Mcg Tab) 5,000 units PO [facility] Stop: 05/02/21 08:59 Last Admin: 04/04/21 09:06 Dose: 5,000 units Documented by: Zinc Sulfate (Zinc Sulfate 220 Mg Capsule) 220 mg PO [facility] Stop: 05/02/21 08:59 Last Admin: 04/04/21 09:06 Dose: 220 mg Documented by: PG Care Time/CCT Total # of Minutes Spent Total Time Spent with Patient: Total time spent is greater than 50% in coordination of care (as documented) at patient's floor/unit and/or counseling patient: Coding Level of Care Code 66496 Subseq Hosp Care Lvl 3 Diagnoses Acute respiratory failure with hypoxemia J96.01 Pneumonia due to 2019 novel coronavirus U07.1; J12.82 Elevated d-dimer R79.89 Elevated transaminase level R74.01 Panic attack F41.0 Hypokalemia E87.6
[2021-04-04] MEDS: POTASSIUM CHLORIDE CRTAB 20 MEQ TABCR PO SCH ×2 (13:08→22:45)
[2021-04-04] MEDS: traMADol HCL 50 MG TABLET PO PRN (13:08)
[2021-04-04] MEDS: AZITHROMYCIN 500 MG in DEXTROSE 5% 250 ML IV SCH (20:37)
[2021-04-04] MEDS: REMDESIVIR 100mg: Days 2-5 IV SCH (20:37)
[2021-04-04] MEDS: SODIUM CHLORIDE 0.9% 10ML FLUSH IV SCH (22:10)
[2021-04-05] MEDS: traMADol HCL 50 MG TABLET PO PRN (04:09)
[2021-04-05 07:03] LABS: BUN Creatinine Ratio 16.8 (10-20); C Reactive Protein 2.3 mg/dl (0-0.29); Calcium 8.6 mg/dl (8.5-10.1); Creatinine Clr Calc Pharmacy 93.1 ml/min; Est GFR (African American) 108.2 ml/min; Est GFR (Non-African American) 93.4 ml/min; Potassium 4.4 mmol/L (3.5-5.1)
[2021-04-05] MEDS: ALBUT/IPRATROP 3MG/0.5MG NEB 3 ML VIAL NEB SCH (07:08)
--- NOTE | 2021-04-05 07:38 | XRay Report ---
XR chest 1V portable CLINICAL HISTORY: f/u COMPARISON STUDY: Chest CT March 29, 2021. Chest radiograph April 03, 2021. FINDINGS: Lung volumes are normal. There is no pneumothorax or pleural effusion. Cardiac mediastinal silhouette is stable. Extensive bilateral airspace opacities are noted. These have slightly improved since exam of April 03, 2021. IMPRESSION: Slight improvement in extensive bilateral airspace opacities. ACT 112: Negative or not required by law. Electronically signed by: Ignacio Boles M.D. 04/05/2021 7:37 AM
--- NOTE | 2021-04-05 08:04 | Pulmonology Progress Note ---
Date of Service April 05, 2021 Assessment & Plan (1) Acute respiratory failure with hypoxemia: (2) Pneumonia due to 2019 novel coronavirus: (3) Hemoptysis: Plan: CT chest 03/29/2021 personally reviewed: Bilateral peripheral patchy opacities appreciated upper and lower lobes, more pronounced in the lower lobes No significant mediastinal adenopathy Chest x-ray 04/01/21 personally reviewed: Portable film, diffuse patchy alveolar opacities appreciated bilaterally, worse compared to chest x-ray --Acute hypoxic respiratory failure Secondary to multilobar pneumonia from COVID-19 COVID-19 PCR positive 04/01/21 CRP 14.1--> 5.12, procalcitonin 0.47 S/p Tocilizumab 04/03/2021 --Hemoptysis Resolved Likely from coughing Plan: In/out: -65, urine output 1600 Chest x-ray from today shows improvement in the infiltrates bilaterally. Continue with incentive spirometry Continue with guaifenesin Patient seems to be doing better when it comes to oxygen requirement. Try to titrate down O2 to keep between 90-92% Continue with the above measures Pulmonary will follow the patient peripherally. Please call directly with any questions. Please note the above document was generated using voice recognition software. It may contain grammatical, syntax or spelling errors.Any formal questions or concerns about the content, text or information contained within the body of this dictation should be directly addressed to the provider for clarification. Admission and Anticipated Discharge Date Admission Date: April 01, 2021 Subjective Patient seen and examined at bedside. No acute distress. Patient was saturating 95% on 11 L nasal cannula. Stated that he is feeling better compared to before. Does complain of chest pain especially on coughing. Has been bringing up phlegm. No more hemoptysis. Shortness of breath is significantly improved. Review of Systems Review of Systems: All systems reviewed & are unremarkable except as noted in Subjective Physical Exam Physical Exam: Constitutional: No acute distress HEENT: EOMI, PERRLA Respiratory system: Decreased air entry bilaterally, no wheeze, no rhonchi, positive crackles bilateral lower lobes CVS: S1-S2 positive, no murmurs or gallops Abdomen: Soft, nontender, nondistended, positive bowel sounds x4 Extremities: +2 pulses bilaterally radialis/ dorsalis pedis, no cyanosis, no edema Neuro: Awake alert oriented x3 Psych: Normal mood and affect G/U: No Robertson Skin: no rashes, warm and dry Lymphatic: no cervical or axillary lymphadenopathy Results & Data Results & Data ([facility]) Vital Signs (Past 12 Hours) Vital Signs Temp Pulse Pulse Resp BP BP Pulse Ox 04/05/21 07:49 58 L 04/05/21 07:08 73 20 100 04/05/21 04:04 36.6 C 75 20 95/60 L 92 04/05/21 04:00 04/05/21 03:39 60 22 91 04/04/21 23:43 91 04/04/21 22:48 36.4 C 76 22 106/78 90 04/04/21 22:20 78 Pulse Ox 04/05/21 07:49 04/05/21 07:08 04/05/21 04:04 04/05/21 04:00 90 04/05/21 03:39 04/04/21 23:43 04/04/21 22:48 04/04/21 22:20 04/04/21 06:11 04/05/21 05:39 PG Care Time/CCT Total # of Minutes Spent Total Time Spent with Patient: Total time spent is greater than 50% in coordination of care (as documented) at patient's floor/unit and/or counseling patient: Coding Level of Care Code 94256 Subseq Hosp Care Lvl 3 Diagnoses Acute respiratory failure with hypoxemia J96.01 Pneumonia due to 2019 novel coronavirus U07.1; J12.82 Hemoptysis R04.2 Time Spent (min) 35
[2021-04-05] MEDS: TESTOSTERONE GEL TOP SCH (08:13)
[2021-04-05] MEDS: ENOXAPARIN INJ 40 MG/0.4 ML SYR SQ SCH (08:13)
[2021-04-05] MEDS: guaiFENesin 600 MG TABCR PO SCH ×2 (08:13→20:34)
[2021-04-05] MEDS: ZINC SULFATE 220 MG CAPSULE PO SCH (08:13)
[2021-04-05] MEDS: CHOLECALCIFEROL 1,000 UNITS 25 MCG TAB PO SCH (08:14)
[2021-04-05] MEDS: dexAMETHasone 6 MG in SYRINGE 0 ML IV SCH (08:14)
--- NOTE | 2021-04-05 12:47 | Hospitalist Progress Note ---
Date of Service April 05, 2021 Assessment & Plan (1) Acute respiratory failure with hypoxemia: Plan: Mr. Schmitt is a 46 yo M with a known COVID 19 infection who presented with ongoing symptoms despite oral dexamethasone therapy. symptoms began 03/23, started on dexamethasone on 03/30 when he was in the ED, he was around day 10 of illness at time of admission continue dexamethasone 6mg IV daily x 10 days, day 7 today Remdesivir, day 5 continue Zithromax x 5 days, day 5 treated with Lasix 20mg IV BID for two days, good response, hold Lasix today, lungs are dry on exam CXR 04/05 with improving bilateral infiltrates, CRP down to 2.3 received Tociluzumab on 04/03 looking better each day, try to titrate off oxygen, anticipate d/c in 24-48 hours (2) Pneumonia due to 2019 novel coronavirus: Plan: patient is not vaccinated, recent travel to [place], symptoms on 03/23, thus he is around day 10 of illness on presentation CXR with bilateral infiltrates treatment with dexamethasone, Zithromax, Remdesivir gave Tociluzumab on 04/03 due to worsening condition good response to Lasix 20mg IV BID down to 9L today, CRP down, CXR improved (3) Elevated d-dimer: Plan: - level at 510 on admission - Lovenox 40mg SQ daily (4) Elevated transaminase level: Plan: - AST elevated to 133, ALT to 154 - likely secondary to acute viral infection (5) Panic attack: Plan: very anxious at times, driven by respiratory rate relieved with Ativan 0.5mg PO, will order PRN far less anxious past two days (6) Hypokalemia: Plan: up to 4.4 today, stop PO replacement Admission and Anticipated Discharge Date Admission Date: April 01, 2021 Subjective patient doing great, oxygen requirements down to 9L wall high flow he feels more comfortable breathing, coughing less, eating better, no fever CRP down to 2.3 CXR shows signs of improvement updated his on the phone anticipate 24-48 more hours of hospitalization Review of Systems Review of Systems: All systems reviewed & are unremarkable except as noted in Subjective Physical Exam Constitutional: well developed, well nourished and + ill appearing; + uncomfortable and not in distress Neck: trachea midline, no thyromegaly Respiratory: normal respiratory effort; no respiratory distress and no labored breathing Auscultation: no crackles, no rales, no rhonchi and no wheezes Cardiovascular: Rate/Rhythm: regular rate and regular rhythm Heart Sounds: normal S1 and normal S2; no murmur Extremities: normal capillary refill; no edema Gastrointestinal (Abdomen): normal bowel sounds, soft, nontender, no hepatosplenomegaly Musculoskeletal: no cyanosis or clubbing, extremities motor strength 5/5 Skin: no rashes, warm and dry Neurologic: patellar DTR's 2+ bilat, sensation intact and PERRL, EOMI, acco mmodation nl, no face palsy, no dysarthria Psychiatric: Orientation: alert and oriented x 3 Affect: euthymic affect Results & Data Results & Data ([facility]) Vital Signs (Past 12 Hours) Vital Signs Temp Pulse Pulse Resp BP BP Pulse Ox 04/05/21 10:57 36.8 C 84 20 112/71 94 04/05/21 08:21 36.2 C L 81 20 124/68 95 04/05/21 07:49 58 L 04/05/21 07:08 73 20 100 04/05/21 04:04 36.6 C 75 20 95/60 L 92 04/05/21 04:00 04/05/21 03:39 60 22 91 Pulse Ox Pulse Ox 04/05/21 10:57 94 04/05/21 08:21 04/05/21 07:49 04/05/21 07:08 04/05/21 04:04 04/05/21 04:00 90 04/05/21 03:39 Laboratory Results Laboratory Results - last 24 hr 04/05/21 05:39 Sodium 134 L Potassium 4.4 D Chloride 97 L Carbon Dioxide 32 Anion Gap 5.0 BUN 16 Creatinine 0.98 Est Cr Clr Drug Dosing 93.1 Est GFR ( Amer) 108.2 Est GFR (Non-Af Amer) 93.4 BUN/Creatinine Ratio 16.8 Glucose 83 Calcium 8.6 C-Reactive Protein 2.30 H Medications Administered Current Inpatient Medications Albuterol (Albut/Ipratrop 3mg/0.5mg Neb 3 Ml Vial) 3 ml NEB Q4R PRN PRN Reason: Shortness Of Breath Or Wheezing Stop: 05/02/21 22:59 Last Admin: 04/04/21 05:36 Dose: 3 ml Documented by: Enoxaparin Sodium (Enoxaparin Inj 40 Mg/0.4 Ml Syr) 40 mg SQ DAILY [facility] Stop: 05/03/21 08:59 Last Admin: 04/05/21 08:13 Dose: 40 mg Documented by: Guaifenesin (Guaifenesin 600 Mg Tabcr) 1,200 mg PO Q12 [facility] Stop: 05/02/21 08:59 Last Admin: 04/05/21 08:13 Dose: 1,200 mg Documented by: Dexamethasone 6 mg/ Syringe 1.5 mls @ 1 mls/min IV DAILY [facility] Stop: 04/10/21 09:02 Last Admin: 04/05/21 08:14 Dose: 1 mls/min Documented by: Azithromycin 500 mg/ Dextrose 255 mls @ 127.5 mls/hr IV DAILY@2100 [facility]; Protocol Stop: 04/08/21 23:29 Last Infusion: 04/04/21 22:52 Dose: Infused Documented by: Remdesivir 100 mg/ Sodium (Chloride) 250 mls @ 250 mls/hr IV Q24H [facility]; Protocol Stop: 04/05/21 20:59 Last Infusion: 04/04/21 22:09 Dose: Infused Documented by: Lorazepam (Lorazepam 0.5 Mg Tab) 0.5 mg PO Q8 PRN PRN Reason: Anxiety Stop: 05/02/21 08:52 Last Admin: 04/04/21 22:09 Dose: 0.5 mg Documented by: Ondansetron HCl (Ondansetron Inj 2 Mg/Ml 2 Ml Vial) 4 mg IV Q6H PRN PRN Reason: Nausea Stop: 05/01/21 23:12 Polyethylene Glycol (Polyethylene (Miralax) 17 Gm Pack) 17 gm PO DAILY PRN PRN Reason: Constipation Stop: 05/01/21 23:12 Sodium Chloride (Sodium Chloride 0.9% 10ml Flush) 30 ml IV DAILY@2100 [facility] Stop: 04/05/21 21:01 Last Admin: 04/04/21 22:10 Dose: 30 ml Documented by: Testosterone (Testosterone Gel) 1 appln TOP [facility] Stop: 05/02/21 08:59 Last Admin: 04/05/21 08:13 Dose: 1 appln Documented by: Tramadol HCl (Tramadol Hcl 50 Mg Tablet) 50 mg PO Q4H PRN PRN Reason: Pain Stop: 05/04/21 12:31 Last Admin: 04/05/21 04:09 Dose: 50 mg Documented by: Vitamin D (Cholecalciferol 1,000 Units 25 Mcg Tab) [facility] Stop: 05/02/21 08:59 Last Admin: 04/05/21 08:14 Dose: 5,000 units Documented by: Zinc Sulfate (Zinc Sulfate 220 Mg Capsule) [facility] Stop: 05/02/21 08:59 Last Admin: 04/05/21 08:13 Dose: 220 mg Documented by: PG Care Time/CCT Total # of Minutes Spent Total Time Spent with Patient: Total time spent is greater than 50% in coordination of care (as documented) at patient's floor/unit and/or counseling patient: Coding Level of Care Code 32377 Subseq Hosp Care Lvl 3 Diagnoses Acute respiratory failure with hypoxemia J96.01 Pneumonia due to 2019 novel coronavirus U07.1; J12.82 Elevated d-dimer R79.89 Elevated transaminase level R74.01 Panic attack F41.0 Hypokalemia E87.6
[2021-04-05] MEDS ORDERED: diphenhydrAMINE 50 MG/ML VIAL IV STA (15:19)
[2021-04-05] MEDS: LORazepam 0.5 MG TAB PO PRN (15:27)
[2021-04-05] MEDS ORDERED: SODIUM CHLORIDE 0.65% NA SOLN 45 ML (OCEAN) PRN (15:41)
[2021-04-05] MEDS: AZITHROMYCIN 500 MG in DEXTROSE 5% 250 ML IV SCH (20:34)
[2021-04-05] MEDS: REMDESIVIR 100mg: Days 2-5 IV SCH (20:34)
[2021-04-05] MEDS: MUPIROCIN 2% OINT 22 GM TUBE EXT SCH (20:35)
[2021-04-05] MEDS: SODIUM CHLORIDE 0.9% 10ML FLUSH IV SCH (22:54)
[2021-04-06 07:55] LABS: Calcium 8.2 mg/dl (8.5-10.1); Creatinine Clr Calc Pharmacy 107.3 ml/min; Est GFR (African American) 122.8 ml/min; Potassium 3.9 mmol/L (3.5-5.1)
[2021-04-06] MEDS: dexAMETHasone 6 MG in SYRINGE 0 ML IV SCH (09:02)
[2021-04-06] MEDS: ENOXAPARIN INJ 40 MG/0.4 ML SYR SQ SCH (09:03)
[2021-04-06] MEDS: TESTOSTERONE GEL TOP SCH (09:04)
[2021-04-06] MEDS: CHOLECALCIFEROL 1,000 UNITS 25 MCG TAB PO SCH (09:04)
[2021-04-06] MEDS: ZINC SULFATE 220 MG CAPSULE PO SCH (09:04)
[2021-04-06] MEDS: MUPIROCIN 2% OINT 22 GM TUBE EXT SCH ×2 (09:05→20:48)
[2021-04-06] MEDS: guaiFENesin 600 MG TABCR PO SCH ×2 (09:06→20:48)
[2021-04-06] MEDS ORDERED: FUROSEMIDE 20 MG in SYRINGE 0 ML IV ONE (11:30)
--- NOTE | 2021-04-06 11:47 | Hospitalist Progress Note ---
Date of Service April 06, 2021 Assessment & Plan (1) Acute respiratory failure with hypoxemia: Plan: Mr. Schmitt is a 46 yo M with a known COVID 19 infection who presented with ongoing symptoms despite oral dexamethasone therapy. symptoms began 03/23, started on dexamethasone on 03/30 when he was in the ED, he was around day 10 of illness at time of admission continue dexamethasone 6mg IV daily x 10 days, day 8 today Remdesivir, 5 days completed continue Zithromax x 5 days, completed treated with Lasix 20mg IV BID for two days, good response, held Lasix yesterday will give another dose of Lasix 20mg IV today, drinking a lot of fluids CXR 04/05 with improving bilateral infiltrates, CRP down to 2.3 will repeat CXR tomorrow received Tociluzumab on 04/03 looking better each day, try to titrate off oxygen, anticipate d/c in the next few days may end up going home on oxygen (2) Pneumonia due to 2019 novel coronavirus: Plan: patient is not vaccinated, recent travel to [place], symptoms on 03/23, thus he is around day 10 of illness on presentation CXR with bilateral infiltrates treatment with dexamethasone, Zithromax, Remdesivir gave Tociluzumab on 04/03 due to worsening condition good response to Lasix 20mg IV BID, give another dose today stable on 9L today, CRP down, CXR improved (3) Elevated d-dimer: Plan: - level at 510 on admission - Lovenox 40mg SQ daily (4) Elevated transaminase level: Plan: - AST elevated to 133, ALT to 154 on admission, not following further - likely secondary to acute viral infection (5) Panic attack: Plan: very anxious at times, driven by respiratory rate relieved with Ativan 0.5mg PO, will order PRN far less anxious past three days (6) Hypokalemia: Plan: 3.9 today, will give potassium with the lasix Admission and Anticipated Discharge Date Admission Date: April 01, 2021 Subjective patient doing well, still has some dyspnea at rest and on exertion but much better he was able to sit at the sink and wash himself had some epistaxis and coughed up some blood last night, now resolved with nasal spray and mupirocin eating really well, better than days past, drinking a lot of fluids vitals stable, Cr and electrolytes normal will call his with update today Review of Systems Review of Systems: All systems reviewed & are unremarkable except as noted in Subjective Physical Exam Constitutional: well developed, well nourished and comfortable; not in distress Neck: trachea midline, no thyromegaly Respiratory: normal respiratory effort; no respiratory distress and no labored breathing Auscultation: no crackles, no rales, no rhonchi and no wheezes Cardiovascular: Rate/Rhythm: regular rate and regular rhythm Heart Sounds: normal S1 and normal S2; no murmur Extremities: normal capillary refill; no edema Gastrointestinal (Abdomen): normal bowel sounds, soft, nontender, no hepatosplenomegaly Musculoskeletal: no cyanosis or clubbing, extremities motor strength 5/5 Skin: no rashes, warm and dry Neurologic: patellar DTR's 2+ bilat, sensation intact and PERRL, EOMI, accommodation nl, no face palsy, no dysarthria Psychiatric: Orientation: alert and oriented x 3 Affect: euthymic affect Results & Data Results & Data ([facility]) Vital Signs (Past 12 Hours) Vital Signs Temp Pulse Resp BP BP Pulse Ox 04/06/21 07:56 61 20 92 04/06/21 07:49 36.7 C 71 18 97/58 L 87 L 04/06/21 02:05 36.9 C 66 18 100/65 94 Laboratory Results Laboratory Results - last 24 hr 04/06/21 07:15 Sodium 136 Potassium 3.9 Chloride 101 Carbon Dioxide 30 Anion Gap 5.0 BUN 16 Creatinine 0.85 Est Cr Clr Drug Dosing 107.3 Est GFR ( Amer) 122.8 Est GFR (Non-Af Amer) 106.0 BUN/Creatinine Ratio 19.0 Glucose 84 Calcium 8.2 L Medications Administered Current Inpatient Medications Albuterol (Albut/Ipratrop 3mg/0.5mg Neb 3 Ml Vial) 3 ml NEB Q4R PRN PRN Reason: Shortness Of Breath Or Wheezing Stop: 05/02/21 22:59 Last Admin: 04/04/21 05:36 Dose: 3 ml Documented by: Enoxaparin Sodium (Enoxaparin Inj 40 Mg/0.4 Ml Syr) 40 mg SQ DAILY [facility] Stop: 05/03/21 08:59 Last Admin: 04/06/21 09:03 Dose: 40 mg Documented by: Guaifenesin (Guaifenesin 600 Mg Tabcr) 1,200 mg PO Q12 [facility] Stop: 05/02/21 08:59 Last Admin: 04/06/21 09:06 Dose: 1,200 mg Documented by: Dexamethasone 6 mg/ Syringe 1.5 mls @ 1 mls/min IV DAILY [facility] Stop: 04/10/21 09:02 Last Admin: 04/06/21 09:02 Dose: 1 mls/min Documented by: Azithromycin 500 mg/ Dextrose 255 mls @ 127.5 mls/hr IV DAILY@2100 [facility]; Protocol Stop: 04/08/21 23:29 Last Infusion: 04/05/21 22:54 Dose: Infused Documented by: Lorazepam (Lorazepam 0.5 Mg Tab) 0.5 mg PO Q8 PRN PRN Reason: Anxiety Stop: 05/02/21 08:52 Last Admin: 04/05/21 15:27 Dose: 0.5 mg Documented by: Mupirocin (Mupirocin 2% Oint 22 Gm Tube) 1 appln EXT BID [facility] Stop: 05/05/21 20:59 Last Admin: 04/06/21 09:05 Dose: 1 appln Documented by: Ondansetron HCl (Ondansetron Inj 2 Mg/Ml 2 Ml Vial) 4 mg IV Q6H PRN PRN Reason: Nausea Stop: 05/01/21 23:12 Polyethylene Glycol (Polyethylene (Miralax) 17 Gm Pack) 17 gm PO DAILY PRN PRN Reason: Constipation Stop: 05/01/21 23:12 Last Admin: 04/06/21 09:04 Dose: 17 gm Documented by: Potassium Chloride (Potassium Chloride Crtab 20 Meq Tabcr) 20 meq PO BID [facility] Stop: 05/06/21 11:29 Sodium Chloride (Sodium Chloride 0.65% Na Soln 45 Ml ([place])) 2 sprays NA Q1H PRN PRN Reason: Dryness Stop: 05/05/21 15:40 Last Admin: 04/06/21 09:13 Dose: 2 sprays Documented by: Testosterone (Testosterone Gel) 1 appln TOP QAM [facility] Stop: 05/02/21 08:59 Last Admin: 04/06/21 09:04 Dose: 1 appln Documented by: Tramadol HCl (Tramadol Hcl 50 Mg Tablet) 50 mg PO Q4H PRN PRN Reason: Pain Stop: 05/04/21 12:31 Last Admin: 04/05/21 04:09 Dose: 50 mg Documented by: Vitamin D (Cholecalciferol 1,000 Units 25 Mcg Tab) 5,000 units PO QAM [facility] Stop: 05/02/21 08:59 Last Admin: 04/06/21 09:04 Dose: 5,000 units Documented by: Zinc Sulfate (Zinc Sulfate 220 Mg Capsule) 220 mg PO QAM [facility] Stop: 05/02/21 08:59 Last Admin: 04/06/21 09:04 Dose: 220 mg Documented by: PG Care Time/CCT Total # of Minutes Spent Total Time Spent with Patient: Total time spent is greater than 50% in coordination of care (as documented) at patient's floor/unit and/or counseling patient: Coding Level of Care Code 09770 Subseq Hosp Care Lvl 3 Diagnoses Acute respiratory failure with hypoxemia J96.01 Pneumonia due to 2019 novel coronavirus U07.1; J12.82 Elevated d-dimer R79.89 Elevated transaminase level R74.01 Panic attack F41.0 Hypokalemia E87.6
[2021-04-06] MEDS: POTASSIUM CHLORIDE CRTAB 20 MEQ TABCR PO SCH ×2 (12:39→20:48)
[2021-04-06] MEDS: AZITHROMYCIN 500 MG in DEXTROSE 5% 250 ML IV SCH (20:48)
[2021-04-07 06:14] LABS: BUN Creatinine Ratio 18.3 (10-20); Calcium 8.5 mg/dl (8.5-10.1); Creatinine Clr Calc Pharmacy 103.6 ml/min; Est GFR (African American) 121.1 ml/min; Est GFR (Non-African American) 104.5 ml/min; Potassium 3.8 mmol/L (3.5-5.1)
--- NOTE | 2021-04-07 08:16 | XRay Report ---
SINGLE VIEW CHEST CLINICAL HISTORY: Covid pneumonia. FINDINGS: An AP, portable, upright chest radiograph is compared to study dated 04/05/2021. The cardiome diastinal silhouette is unremarkable. Multifocal airspace consolidation is again seen throughout both lungs. This is unchanged from 04/05/2021. No large pleural effusion or pneumothorax is identified. The bony thorax is grossly intact. IMPRESSION: Multifocal airspace consolidation has not significantly changed from 04/05/2021. ACT 112: Negative or not required by law. Electronically signed by: Krunal Torres M.D. 04/07/2021 8:14 AM
[2021-04-07] MEDS: POTASSIUM CHLORIDE CRTAB 20 MEQ TABCR PO SCH ×2 (08:18→20:11)
[2021-04-07] MEDS: TESTOSTERONE GEL TOP SCH (08:18)
[2021-04-07] MEDS: guaiFENesin 600 MG TABCR PO SCH ×2 (08:18→20:11)
[2021-04-07] MEDS: dexAMETHasone 6 MG in SYRINGE 0 ML IV SCH (08:18)
[2021-04-07] MEDS: CHOLECALCIFEROL 1,000 UNITS 25 MCG TAB PO SCH (08:19)
[2021-04-07] MEDS: ENOXAPARIN INJ 40 MG/0.4 ML SYR SQ SCH (08:19)
[2021-04-07] MEDS: ZINC SULFATE 220 MG CAPSULE PO SCH (08:19)
[2021-04-07] MEDS: MUPIROCIN 2% OINT 22 GM TUBE EXT SCH ×2 (08:20→20:12)
--- NOTE | 2021-04-07 12:34 | Hospitalist Progress Note ---
Date of Service April 07, 2021 Assessment & Plan (1) Acute respiratory failure with hypoxemia: Plan: Mr. Schmitt is a 46 yo M with a known COVID 19 infection who presented with ongoing symptoms despite oral dexamethasone therapy. symptoms began 03/23, started on dexamethasone on 03/30 when he was in the ED, he was around day 10 of illness at time of admission continue dexamethasone 6mg IV daily x 10 days, day 9 today, can stop after tomorrow Remdesivir, 5 days completed continue Zithromax x 5 days, completed received Tociluzumab on 04/03, really good response, went from vapotherm to wall high flow in 48 hours treated with Lasix 20mg IV intermittently, gave dose on 04/06, no dose needed today, his lungs are clear, examines euvolemic CXR 04/05 with improving bilateral infiltrates, CRP down to 2.3 CXR 04/07 with similar infiltrates looking better each day, try to titrate off oxygen, anticipate d/c later this week, might need to send home on oxygen (2) Pneumonia due to 2019 novel coronavirus: Plan: patient is not vaccinated, recent travel to [place], symptoms on 03/23, thus he is around day 10 of illness on presentation CXR with bilateral infiltrates treatment with dexamethasone, Zithromax, Remdesivir gave Tociluzumab on 04/03 due to worsening condition good response to Lasix 20mg IV intermittently stable again on 9L today, overall he feels a lot better, more energy, eating well (3) Elevated d-dimer: Plan: - level at 510 on admission - Lovenox 40mg SQ daily (4) Elevated transaminase level: Plan: - AST elevated to 133, ALT to 154 on admission, not following further - likely secondary to acute viral infection (5) Panic attack: Plan: very anxious at times, driven by respiratory rate relieved with Ativan 0.5mg PO, will order PRN far less anxious past three days (6) Hypokalemia: Plan: 3.8 today Admission and Anticipated Discharge Date Admission Date: April 01, 2021 Subjective patient doing a lot better, still on 9L but he feels better, more energy still has some dyspnea and dyspnea on exertion, explained that everyone recovers at a different pace eating very well, had a BM two days ago, no nausea no chest pain, no fever, no rash, more strength today lungs clear on exam labs reviewed, Cr and electrolytes stable Review of Systems Review of Systems: All systems reviewed & are unremarkable except as noted in Subjective Respiratory: + cough, + dyspnea and + dyspnea on exertion Physical Exam Constitutional: well developed, well nourished and comfortable; not in distress Neck: trachea midline, no thyromegaly Respiratory: normal respiratory effort; no respiratory distress and no labored breathing Auscultation: no crackles, no rales, no rhonchi and no wheezes Cardiovascular: Rate/Rhythm: regular rate and regular rhythm Heart Sounds: normal S1 and normal S2; no murmur Extremities: normal capillary refill; no edema Gastrointestinal (Abdomen): normal bowel sounds, soft, nontender, no hepatosplenomegaly Musculoskeletal: no cyanosis or clubbing, extremities motor strength 5/5 Skin: no rashes, warm and dry Neurologic: patellar DTR's 2+ bilat, sensation intact and PERRL, EOMI, accommodation nl, no face palsy, no dysarthria Psychiatric: Orientation: alert and oriented x 3 Affect: euthymic affect Results & Data Results & [facility]) Vital Signs (Past 12 Hours) Vital Signs Temp Pulse Pulse Resp BP Pulse Ox Pulse Ox 04/07/21 10:00 92 04/07/21 08:16 36.6 C 82 20 111/72 90 04/07/21 07:00 74 04/07/21 04:00 36.6 C 58 L 18 110/78 91 Laboratory Results Laboratory Results - last 24 hr 04/07/21 05:20 Sodium 135 L Potassium 3.8 Chloride 101 Carbon Dioxide 31 Anion Gap 3.0 BUN 16 Creatinine 0.88 Est Cr Clr Drug Dosing 103.6 Est GFR ( Amer) 121.1 Est GFR (Non-Af Amer) 104.5 BUN/Creatinine Ratio 18.3 Glucose 85 Calcium 8.5 Medications Administered Current Inpatient Medications Albuterol (Albut/Ipratrop 3mg/0.5mg Neb 3 Ml Vial) 3 ml NEB Q4R PRN PRN Reason: Shortness Of Breath Or Wheezing Stop: 05/02/21 22:59 Last Admin: 04/04/21 05:36 Dose: 3 ml Documented by: Enoxaparin Sodium (Enoxaparin Inj 40 Mg/0.4 Ml Syr) 40 mg SQ DAILY [facility] Stop: 05/03/21 08:59 Last Admin: 04/07/21 08:19 Dose: 40 mg Documented by: Guaifenesin (Guaifenesin 600 Mg Tabcr) 1,200 mg PO Q12 [facility] Stop: 05/02/21 08:59 Last Admin: 04/07/21 08:18 Dose: 1,200 mg Documented by: Dexamethasone 6 mg/ Syringe 1.5 mls @ 1 mls/min IV DAILY [facility] Stop: 04/10/21 09:02 Last Admin: 04/07/21 08:18 Dose: 1 mls/min Documented by: Azithromycin 500 mg/ Dextrose 255 mls @ 127.5 mls/hr IV DAILY@2100 [facility]; Protocol Stop: 04/08/21 23:29 Last Infusion: 04/06/21 23:15 Dose: Infused Documented by: Lorazepam (Lorazepam 0.5 Mg Tab) 0.5 mg PO Q8 PRN PRN Reason: Anxiety Stop: 05/02/21 08:52 Last Admin: 04/05/21 15:27 Dose: 0.5 mg Documented by: Mupirocin (Mupirocin 2% Oint 22 Gm Tube) 1 appln EXT BID [facility] Stop: 05/05/21 20:59 Last Admin: 04/07/21 08:20 Dose: 1 appln Documented by: Ondansetron HCl (Ondansetron Inj 2 Mg/Ml 2 Ml Vial) 4 mg IV Q6H PRN PRN Reason: Nausea Stop: 05/01/21 23:12 Polyethylene Glycol (Polyethylene (Miralax) 17 Gm Pack) 17 gm PO DAILY PRN PRN Reason: Constipation Stop: 05/01/21 23:12 Last Admin: 04/06/21 09:04 Dose: 17 gm Documented by: Potassium Chloride (Potassium Chloride Crtab 20 Meq Tabcr) 20 meq PO BID [facility] Stop: 05/06/21 11:29 Last Admin: 04/07/21 08:18 Dose: 20 meq Documented by: Sodium Chloride (Sodium Chloride 0.65% Na Soln 45 Ml ([place])) 2 sprays NA Q1H PRN PRN Reason: Dryness Stop: 05/05/21 15:40 Last Admin: 04/06/21 09:13 Dose: 2 sprays Documented by: Testosterone (Testosterone Gel) 1 appln TOP QAM [facility] Stop: 05/02/21 08:59 Last Admin: 04/07/21 08:18 Dose: 1 appln Documented by: Tramadol HCl (Tramadol Hcl 50 Mg Tablet) 50 mg PO Q4H PRN PRN Reason: Pain Stop: 05/04/21 12:31 Last Admin: 04/05/21 04:09 Dose: 50 mg Documented by: Vitamin D (Cholecalciferol 1,000 Units 25 Mcg Tab) 5,000 units PO QAM [facility] Stop: 05/02/21 08:59 Last Admin: 04/07/21 08:19 Dose: 5,000 units Documented by: Zinc Sulfate (Zinc Sulfate 220 Mg Capsule) 220 mg PO QAM [facility] Stop: 05/02/21 08:59 Last Admin: 04/07/21 08:19 Dose: 220 mg Documented by: PG Care Time/CCT Total # of Minutes Spent Total Time Spent with Patient: Total time spent is greater than 50% in coordination of care (as documented) at patient's floor/unit and/or counseling patient: Coding Level of Care Code 88203 Subseq Hosp Care Lvl 3 Diagnoses Acute respiratory failure with hypoxemia J96.01 Pneumonia due to 2019 novel coronavirus U07.1; J12.82 Elevated d-dimer R79.89 Elevated transaminase level R74.01 Panic attack F41.0 Hypokalemia E87.6
[2021-04-07] MEDS: AZITHROMYCIN 500 MG in DEXTROSE 5% 250 ML IV SCH (20:11)
[2021-04-08] MEDS: dexAMETHasone 6 MG in SYRINGE 0 ML IV SCH (08:50)
[2021-04-08] MEDS: TESTOSTERONE GEL TOP SCH (08:50)
[2021-04-08] MEDS: ENOXAPARIN INJ 40 MG/0.4 ML SYR SQ SCH (08:50)
[2021-04-08] MEDS: CHOLECALCIFEROL 1,000 UNITS 25 MCG TAB PO SCH (08:51)
[2021-04-08] MEDS: POTASSIUM CHLORIDE CRTAB 20 MEQ TABCR PO SCH ×2 (08:51→21:05)
[2021-04-08] MEDS: ZINC SULFATE 220 MG CAPSULE PO SCH (08:51)
[2021-04-08] MEDS: guaiFENesin 600 MG TABCR PO SCH ×2 (08:51→21:05)
[2021-04-08] MEDS: MUPIROCIN 2% OINT 22 GM TUBE EXT SCH ×2 (08:53→21:06)
[2021-04-08 10:30] LABS: Basophils # (auto) 0.03 K/uL (0-0.2); Basophils % (auto) 0.3 %; Eosinophils # (auto) 0.23 K/uL (0-0.5); Eosinophils % (auto) 2.5 %; Hematocrit (blood only) 46.8 % (42-52); Hemoglobin 15.7 g/dL (14.0-18.0); Immature Granulocytes # (auto) 0.45 K/uL (0.00-0.02); Immature Granulocytes % (auto) 4.9 %; Lymphocytes # (auto) 1.53 K/uL (1.2-3.4); Lymphocytes % (auto) 16.8 %; Mean Corpuscular Hemoglobin 31.4 pg (25-34); Mean Corpuscular Hgb Conc 33.5 g/dL (32-36); Mean Corpuscular Volume 93.6 fL (80-100); Mean Platelet Volume 10.8 fL (7.4-10.4); Monocytes % (auto) 8.8 %; Neutrophils # (auto) 6.08 K/uL (1.4-6.5); Neutrophils % (auto) 66.7 %; Platelet Count 439 K/uL (130-400); RDW Coefficient of Variation 14.3 % (11.5-14.5); RDW Standard Deviation 48.3 fL (36.4-46.3); White Blood Count 9.12 K/uL (4.8-10.8)
[2021-04-08 11:09] LABS: Potassium 3.8 mmol/L (3.5-5.1)
[2021-04-08 11:10] LABS: Albumin Level 2.4 gm/dl (3.4-5.0); BUN Creatinine Ratio 13.3 (10-20); Calcium 8.4 mg/dl (8.5-10.1); Creatinine Clr Calc Pharmacy 84.4 ml/min; Est GFR (African American) 96.2 ml/min; Magnesium 2.2 mg/dl (1.8-2.4)
[2021-04-08 11:12] LABS: Albumin Globulin Ratio 0.6 (0.9-2); Bilirubin,Total 0.6 mg/dl (0.2-1); C Reactive Protein 0.34 mg/dl (0-0.29); Globulin 3.8 gm/dl (2.5-4.0); Total Protein 6.2 gm/dl (6.4-8.2)
--- NOTE | 2021-04-08 18:21 | Hospitalist Progress Note ---
Date of Service April 08, 2021 Assessment & Plan (1) Acute respiratory failure with hypoxemia: Plan: Mr. Schmitt is a 46 yo M with a known COVID 19 infection who presented with ongoing symptoms despite oral dexamethasone therapy. symptoms began 03/23, started on dexamethasone on 03/30 when he was in the ED, he was around day 10 of illness at time of admission continue dexamethasone 6mg IV daily x 10 days, day 10 today, can stop after today Remdesivir, 5 days completed continue Zithromax x 5 days, completed received Tociluzumab on 04/03, really good response, went from vapotherm to wall high flow in 48 hours treated with Lasix 20mg IV intermittently, gave dose on 04/06, his lungs are clear, examines euvolemic CXR 04/05 with improving bilateral infiltrates CXR 04/07 and 04/08 with similar infiltrates CRP down to 0.3 looking better each day, try to titrate off oxygen, anticipate d/c later this week, might need to send home on oxygen asked nurse to wean down to 8L again this evening -start sudafed for nasal congestion (2) Pneumonia due to 2019 novel coronavirus: Plan: patient is not vaccinated, recent travel to [place], symptoms on 03/23, thus he is around day 10 of illness on presentation CXR with bilateral infiltrates treatment with dexamethasone, Zithromax, Remdesivir as above gave Tociluzumab on 04/03 due to worsening condition good response to Lasix 20mg IV intermittently stable again on 9L today, overall he feels a lot better, more energy, eating well (3) Elevated d-dimer: Plan: - level at 510 on admission - Lovenox 40mg SQ daily (4) Elevated transaminase level: Plan: - AST elevated to 133, ALT to 154 on admission, improving today - likely secondary to acute viral infection (5) Panic attack: Plan: very anxious at times, driven by respiratory rate relieved with Ativan 0.5mg PO, will order PRN far less anxious past three days (6) Hypokalemia: Plan: improved with replacement follow BMP Plan: DVT proph-Lovenox Dispo-continued stay Admission and Anticipated Discharge Date Admission Date: April 01, 2021 Subjective Feeling better, is hoping to wean down on NC, has been at 9L all day. Has been proning intermittently. Has some occasional cough, not SOB with standing up and walking in room. RN reports he dropped to the 80s on POx when weaned to 8LNC thi s AM. No diarrhea, says appetite is great. Has nasal congestion. Tele with NSR, rates 50-60s. Review of Systems Review of Systems: All systems reviewed & are unremarkable except as noted in HPI & below Physical Exam Constitutional: WD/WN, vitals as above Eyes: + anicteric sclerae Neck: trachea midline, no thyromegaly Respiratory: normal respiratory effort, lungs clear to auscultation Cardiovascular: RRR, no murmur, no edema Chest (Breasts): Chest: normal inspection of chest Gastrointestinal (Abdomen): normal bowel sounds, soft, nontender, no hepatosplenomegaly Musculoskeletal: Extremities: extremities normal to inspection; no cyanosis and no clubbing Skin: no rashes, warm and dry Neurologic: moves all extremities and awake; no focal motor deficits Psychiatric: A+Ox3, euthymic affect Lymphatic: no lymphedema Results & Data Results & Data ([facility]) Vital Signs (Past 12 Hours) Vital Signs Temp Pulse Pulse Resp BP Pulse Ox Pulse Ox 04/08/21 16:26 36.8 C 67 18 93/59 L 91 04/08/21 15:00 63 04/08/21 12:01 36.4 C L 68 20 107/71 92 04/08/21 10:00 91 04/08/21 08:07 36.8 C 72 20 101/67 90 04/08/21 07:00 56 L Laboratory Results 04/08/21 04/08/21 Range/Units 09:54 09:54 WBC 9.12 (4.8-10.8) K/uL RBC 5.00 (4.7-6.1) M/uL Hgb 15.7 (14.0-18.0) g/dL Hct 46.8 (42-52) % MCV 93.6 (80-100) fL MCH 31.4 (25-34) pg MCHC 33.5 (32-36) g/dL RDW Std Deviation 48.3 H (36.4-46.3) fL RDW Coeff of Liset 14.3 (11.5-14.5) % Plt Count 439 H (130-400) K/uL MPV 10.8 H (7.4-10.4) fL Immature Gran % (Auto) 4.9 % Neut % (Auto) 66.7 % Lymph % (Auto) 16.8 % [place] % (Auto) 8.8 % Eos % (Auto) 2.5 % Baso % (Auto) 0.3 % Neut # (Auto) 6.08 (1.4-6.5) K/uL Lymph # (Auto) 1.53 (1.2-3.4) K/uL [place] # (Auto) 0.80 H (0.11-0.59) K/uL Eos # (Auto) 0.23 (0-0.5) K/uL Baso # (Auto) 0.03 (0-0.2) K/uL Immature Gran # (Auto) 0.45 H (0.00-0.02) K/uL Sodium 137 (136-145) mmol/L Potassium 3.8 (3.5-5.1) mmol/L Chloride 103 (98-107) mmol/L Carbon Dioxide 30 (21-32) mmol/L Anion Gap 4.0 (3-11) BUN 14 (7-18) mg/dl Creatinine 1.08 (0.6-1.4) mg/dl Est Cr Clr Drug Dosing 84.4 ml/min Est GFR ( Amer) 96.2 ml/min Est GFR (Non-Af Amer) 83.0 ml/min BUN/Creatinine Ratio 13.3 (10-20) Glucose 133 H (70-99) mg/dl Calcium 8.4 L (8.5-10.1) mg/dl Magnesium 2.2 (1.8-2.4) mg/dl Total Bilirubin 0.6 (0.2-1) mg/dl AST 66 H (15-37) U/L ALT 123 H (12-78) U/L Alkaline Phosphatase 36 L (45-117) U/L C-Reactive Protein 0.34 H (0-0.29) mg/dl Total Protein 6.2 L (6.4-8.2) gm/dl Albumin 2.4 L (3.4-5.0) gm/dl Globulin 3.8 (2.5-4.0) gm/dl Albumin/Globulin Ratio 0.6 L (0.9-2) PG Care Time/CCT Total # of Minutes Spent Total Time Spent with Patient: Total time spent is greater than 50% in coordination of care (as documented) at patient's floor/unit and/or counseling patient: Coding Level of Care Code 58789 Subseq Hosp Care Lvl 3 Diagnoses Acute respiratory failure with hypoxemia J96.01 Pneumonia due to 2019 novel coronavirus U07.1; J12.82 Elevated d-dimer R79.89 Elevated transaminase level R74.01 Panic attack F41.0 Hypokalemia E87.6
[2021-04-08] MEDS: PSEUDOEPHEDRINE HCL 30 MG TAB PO PRN (21:16)
[2021-04-09] MEDS: PSEUDOEPHEDRINE HCL 30 MG TAB PO PRN (08:03)
[2021-04-09] MEDS: TESTOSTERONE GEL TOP SCH (08:03)
[2021-04-09] MEDS: MUPIROCIN 2% OINT 22 GM TUBE EXT SCH ×2 (08:04→21:45)
[2021-04-09] MEDS: ENOXAPARIN INJ 40 MG/0.4 ML SYR SQ SCH (08:05)
[2021-04-09] MEDS: ZINC SULFATE 220 MG CAPSULE PO SCH (08:05)
[2021-04-09] MEDS: guaiFENesin 600 MG TABCR PO SCH ×2 (08:05→20:50)
[2021-04-09] MEDS: POTASSIUM CHLORIDE CRTAB 20 MEQ TABCR PO SCH (08:05)
[2021-04-09] MEDS: CHOLECALCIFEROL 1,000 UNITS 25 MCG TAB PO SCH (08:05)
[2021-04-09 08:14] LABS: Basophils # (auto) 0.03 K/uL (0-0.2); Basophils % (auto) 0.2 %; Eosinophils # (auto) 0.15 K/uL (0-0.5); Eosinophils % (auto) 1.1 %; Hematocrit (blood only) 47.2 % (42-52); Hemoglobin 15.8 g/dL (14.0-18.0); Lymphocytes # (auto) 2.74 K/uL (1.2-3.4); Lymphocytes % (auto) 20.8 %; Mean Corpuscular Hemoglobin 31.4 pg (25-34); Mean Corpuscular Hgb Conc 33.5 g/dL (32-36); Mean Corpuscular Volume 93.8 fL (80-100); Mean Platelet Volume 10.6 fL (7.4-10.4); Monocytes # (auto) 1.26 K/uL (0.11-0.59); Monocytes % (auto) 9.5 %; Neutrophils # (auto) 8.62 K/uL (1.4-6.5); Neutrophils % (auto) 65.4 %; Platelet Count 453 K/uL (130-400); RDW Coefficient of Variation 14.3 % (11.5-14.5); RDW Standard Deviation 48.4 fL (36.4-46.3); Red Blood Count 5.03 M/uL (4.7-6.1)
[2021-04-09 08:41] LABS: Albumin Level 2.6 gm/dl (3.4-5.0); BUN Creatinine Ratio 13.6 (10-20); Bilirubin,Total 0.9 mg/dl (0.2-1); Calcium 8.5 mg/dl (8.5-10.1); Creatinine Clr Calc Pharmacy 101.3 ml/min; Est GFR (Non-African American) 103.5 ml/min; Magnesium 1.7 mg/dl (1.8-2.4); Potassium 4.1 mmol/L (3.5-5.1)
[2021-04-09 08:42] LABS: Albumin Globulin Ratio 0.7 (0.9-2); Globulin 3.7 gm/dl (2.5-4.0); Total Protein 6.4 gm/dl (6.4-8.2)
[2021-04-09] MEDS ORDERED: MAGNESIUM SULFATE / D5W 1 GM/100 ML BAG IV ONE (10:00)
--- NOTE | 2021-04-09 20:38 | Hospitalist Progress Note ---
Date of Service April 09, 2021 Assessment & Plan (1) Acute respiratory failure with hypoxemia: Plan: Mr. Schmitt is a 46 yo M with a known COVID 19 infection who presented with ongoing symptoms despite oral dexamethasone therapy. symptoms began 03/23, started on dexamethasone on 03/30 when he was in the ED, he was around day 10 of illness at time of admission Much improved now, weaned down to 2LNC completed 10 day course of dexamethasone 6mg IV daily Remdesivir, 5 days completed completed Zithromax x 7 days received Tociluzumab on 04/03, really good response, went from vapotherm to wall high flow in 48 hours treated with Lasix 20mg IV intermittently, gave dose on 04/06, his lungs are clear, examines euvolemic CXR 04/05 with improving bilateral infiltrates CXR 04/07 and 04/08 with similar infiltrates CRP down to 0.3 -cont sudafed for nasal congestion Can likely be discharged to home tomorrow after 2 step walk test, may need O2 at home Will need CXR in 4-6 weeks to ensure resolution of all infiltrates (2) Pneumonia due to 2019 novel coronavirus: Plan: patient is not vaccinated, recent travel to [place], symptoms on 03/23, thus he is around day 10 of illness on presentation CXR with bilateral infiltrates treatment with dexamethasone, Zithromax, Remdesivir as above gave Tociluzumab on 04/03 due to worsening condition good response to Lasix 20mg IV intermittently Improving as above (3) Elevated d-dimer: Plan: - level at 510 on admission - Lovenox 40mg SQ daily (4) Elevated transaminase level: Plan: - AST elevated to 133, ALT to 154 on admission, decreasing daily - likely secondary to acute viral infection (5) Panic attack: Plan: very anxious at times, driven by respiratory rate relieved with Ativan 0.5mg PO PRN Improved (6) Hypokalemia: Plan: improved with replacement follow BMP gave 1 gram IV mag sulfate today Plan: DVT proph-Lovenox Dispo-continued stay but possible dc to home tomorrow with 2 step walk test in AM Admission and Anticipated Discharge Date Admission Date: April 01, 2021 Anticipated date of discharge: 04/10/21 Subjective Feeling better, less SOB, mild cough. Weaned all the way down to 2L this evening. No diarrhea, is making urine, eating well. Tele with NSR, rates 50-70s Review of Systems Review of Systems: All systems reviewed & are unremarkable except as noted in HPI & below Physical Exam Constitutional: WD/WN, vitals as above Eyes: + anicteric sclerae Neck: trachea midline, no thyromegaly Respiratory: normal respiratory effort Auscultation: + crackles (right middle lung field) and + rhonchi; no wheezes Cardiovascular: RRR, no murmur, no edema Chest (Breasts): Chest: normal inspection of chest Gastrointestinal (Abdomen): normal bowel sounds, soft, nontender, no hepatosplenomegaly Musculoskeletal: Extremities: extremities normal to inspection; no cyanosis and no clubbing Skin: no rashes, warm and dry Neurologic: moves all extremities and awake; no focal motor deficits Psychiatric: A+Ox3, euthymic affect Lymphatic: no lymphedema Results & Data Results & Data ([facility]) Vital Signs (Past 12 Hours) Vital Signs Temp Pulse Pulse Resp BP Pulse Ox Pulse Ox 04/09/21 15:34 36.7 C 66 18 134/75 93 04/09/21 15:00 74 04/09/21 11:21 36.7 C 73 18 115/71 90 04/09/21 10:00 93 04/09/21 09:07 95 Laboratory Results 04/09/21 04/09/21 Range/Units 07:28 07:28 WBC 13.20 H (4.8-10.8) K/uL RBC 5.03 (4.7-6.1) M/uL Hgb 15.8 (14.0-18.0) g/dL Hct 47.2 (42-52) % MCV 93.8 (80-100) fL MCH 31.4 (25-34) pg MCHC 33.5 (32-36) g/dL RDW Std Deviation 48.4 H (36.4-46.3) fL RDW Coeff of Liset 14.3 (11.5-14.5) % Plt Count 453 H (130-400) K/uL MPV 10.6 H (7.4-10.4) fL Immature Gran % (Auto) 3.0 % Neut % (Auto) 65.4 % Lymph % (Auto) 20.8 % [place] % (Auto) 9.5 % Eos % (Auto) 1.1 % Baso % (Auto) 0.2 % Neut # (Auto) 8.62 H (1.4-6.5) K/uL Lymph # (Auto) 2.74 (1.2-3.4) K/uL [place] # (Auto) 1.26 H (0.11-0.59) K/uL Eos # (Auto) 0.15 (0-0.5) K/uL Baso # (Auto) 0.03 (0-0.2) K/uL Immature Gran # (Auto) 0.40 H (0.00-0.02) K/uL Sodium 138 (136-145) mmol/L Potassium 4.1 (3.5-5.1) mmol/L Chloride 104 (98-107) mmol/L Carbon Dioxide 29 (21-32) mmol/L Anion Gap 5.0 (3-11) BUN 12 (7-18) mg/dl Creatinine 0.90 (0.6-1.4) mg/dl Est Cr Clr Drug Dosing 101.3 ml/min Est GFR ( Amer) 120.0 ml/min Est GFR (Non-Af Amer) 103.5 ml/min BUN/Creatinine Ratio 13.6 (10-20) Glucose 77 (70-99) mg/dl Calcium 8.5 (8.5-10.1) mg/dl Magnesium 1.7 L (1.8-2.4) mg/dl Total Bilirubin 0.9 (0.2-1) mg/dl AST 50 H (15-37) U/L ALT 124 H (12-78) U/L Alkaline Phosphatase 35 L (45-117) U/L Total Protein 6.4 (6.4-8.2) gm/dl Albumin 2.6 L (3.4-5.0) gm/dl Globulin 3.7 (2.5-4.0) gm/dl Albumin/Globulin Ratio 0.7 L (0.9-2) PG Care Time/CCT Total # of Minutes Spent Total Time Spent with Patient: Total time spent is greater than 50% in coordin ation of care (as documented) at patient's floor/unit and/or counseling patient: Coding Level of Care Code 63840 Subseq Hosp Care Lvl 3 Diagnoses Acute respiratory failure with hypoxemia J96.01 Pneumonia due to 2019 novel coronavirus U07.1; J12.82 Elevated d-dimer R79.89 Elevated transaminase level R74.01 Panic attack F41.0 Hypokalemia E87.6
[2021-04-10 08:25] LABS: Albumin Level 2.7 gm/dl (3.4-5.0); BUN Creatinine Ratio 15.1 (10-20); Calcium 8.4 mg/dl (8.5-10.1); Creatinine Clr Calc Pharmacy 104.8 ml/min; Est GFR (African American) 121.7 ml/min; Magnesium 1.8 mg/dl (1.8-2.4); Potassium 4.5 mmol/L (3.5-5.1)
[2021-04-10 08:28] LABS: Albumin Globulin Ratio 0.7 (0.9-2); Bilirubin,Total 0.6 mg/dl (0.2-1); Globulin 3.8 gm/dl (2.5-4.0); Total Protein 6.5 gm/dl (6.4-8.2)
[2021-04-10] MEDS ORDERED: POTASSIUM CHLORIDE CRTAB 20 MEQ TABCR PO SCH (09:00)
[2021-04-10] MEDS: guaiFENesin 600 MG TABCR PO SCH (09:51)
[2021-04-10] MEDS: PSEUDOEPHEDRINE HCL 30 MG TAB PO PRN (09:52)
[2021-04-10] MEDS: CHOLECALCIFEROL 1,000 UNITS 25 MCG TAB PO SCH (09:52)
[2021-04-10] MEDS: ZINC SULFATE 220 MG CAPSULE PO SCH (09:53)
[2021-04-10] MEDS: TESTOSTERONE GEL TOP SCH (09:54)
[2021-04-10] MEDS: ENOXAPARIN INJ 40 MG/0.4 ML SYR SQ SCH (09:54)
[2021-04-10] MEDS: MUPIROCIN 2% OINT 22 GM TUBE EXT SCH (09:54)
[2021-04-10 12:05] VITALS: TEMP 98.2; O2SAT 95
[2021-04-10 14:21] VITALS: BP 118/72; PULSE 62
--- NOTE | 2021-04-10 14:21 | Discharge Summary ---
Date of Service April 10, 2021 Admission HPI Per Admitting Provider Mr. Schmitt is a 46 yo gentleman who tested positive for COVID-19 after returning from a trip to [place]. His symptoms began on 03/23/21 and included chills, cough, shortness of breath, body aches, and diarrhea. Of note, he went to an Urgent Care clinic on 03/29/21 where testing was ordered and returned positive. While at the Urgent Care, he was found to be in SVT. He was directed to come to the [facility] ED for further management. Fortunately, by the time he arrived at the ED, his SVT had abated. A chest CTA was done during his ED visit and was negative. He was given a script for Dexamethasone 6mg as well as an albuterol inhaler and discharged home. He called back in to the ED earlier today to report a lack of improvement in symptoms, at which time a codeine cough syrup was called into his pharmacy. He was instructed to return to the ED if his pulse oximeter read < 89%. He has no underlying lung disease. Not immunocompromised. No history of smoking. He was not vaccinated against COVID. Occasional Etoh use. In the ED, he was febrile to 38.8, his HR was normal and his O2 at was 89 on room air. It improved to 93 with 4L of supplemental oxygen delivered via NC. His WBC was elevata to 14, with lymphopenia. His Na was mildly low at 134. Kidney function was WNL. His AST was elevated to 133, ALT to 154. Trop undetectable. Lipase not elevated. EKG showing NSR. His CXR showed evidence of a viral pneumonia. He was given 1 liter of NSS, Dexamethasone 6mg IV and 1g Tylenol. Principal Diagnosis COVID-19 Pneumonia, Acute respiratory failure with hypoxia Discharge Exam Constitutional WD/WN, vitals as above Eyes + anicteric sclerae Neck trachea midline, no thyromegaly Respiratory normal respiratory effort Auscultation: + diminished lung sounds (right base); no crackles, no rhonchi and no wheezes Cardiovascular RRR, no murmur, no edema Extremities: no calf tenderness and no edema Chest (Breasts) Chest: normal inspection of chest Gastrointestinal (Abdomen) normal bowel sounds, soft, nontender, no hepatosplenomegaly Musculoskeletal Extremities: extremities normal to inspection; no cyanosis and no clubbing Skin no rashes, warm and dry Neurologic moves all extremities and awake; no focal motor deficits Psychiatric A+Ox3, euthymic affect Lymphatic no lymphedema Discharge Data Allergies Allergy/AdvReac Type Severity Reaction Status Date / Time caffeine Allergy Verified 04/04/21 16:43 carrageenan Allergy Verified 04/04/21 16:43 Consultations 04/01/21 21:16 ED Decision to Admit Stat 04/01/21 23:13 Consult Pulmonology Routine Ordered Studies 04/10/21 Range/Units 07:12 Sodium 138 (136-145) mmol/L Potassium 4.5 (3.5-5.1) mmol/L Chloride 106 (98-107) mmol/L Carbon Dioxide 28 (21-32) mmol/L Anion Gap 4.0 (3-11) BUN 13 (7-18) mg/dl Creatinine 0.87 (0.6-1.4) mg/dl Est Cr Clr Drug Dosing 104.8 ml/min Est GFR ( Amer) 121.7 ml/min Est GFR (Non-Af Amer) 105.0 ml/min BUN/Creatinine Ratio 15.1 (10-20) Glucose 78 (70-99) mg/dl Calcium 8.4 L (8.5-10.1) mg/dl Magnesium 1.8 (1.8-2.4) mg/dl Total Bilirubin 0.6 (0.2-1) mg/dl AST 50 H (15-37) U/L ALT 120 H (12-78) U/L Alkaline Phosphatase 37 L (45-117) U/L Total Protein 6.5 (6.4-8.2) gm/dl Albumin 2.7 L (3.4-5.0) gm/dl Globulin 3.8 (2.5-4.0) gm/dl Albumin/Globulin Ratio 0.7 L (0.9-2) Hospital Course (1) Acute respiratory failure with hypoxemia: Mr. Schmitt is a 46 yo M with a known COVID 19 infection who presented with ongoing symptoms despite oral dexamethasone therapy. symptoms began 03/23, started on dexamethasone on 03/30 when he was in the ED, he was around day 10 of illness at time of admission Much improved now, weaned down to room air at rest and needs 3LNC with exertion on 2 step walk test completed 10 day course of dexamethasone 6mg IV daily Remdesivir, 5 days completed completed Zithromax x 7 days received Tociluzumab on 04/03, really good response, went from vapotherm to wall high flow in 48 hours treated with Lasix 20mg IV intermittently, gave dose on 04/06, his lungs are clear, examines euvolemic CXR 04/05 with improving bilateral infiltrates CXR 04/07 and 04/08 with similar infiltrates CRP down to 0.3 Can likely be discharged to home today with home O2 Will need CXR in 4-6 weeks to ensure resolution of all infiltrates (2) Pneumonia due to 2019 novel coronavirus: patient is not vaccinated, recent travel to [place], symptoms on 03/23, thus he is around day 10 of illness on presentation CXR with bilateral infiltrates treatment with dexamethasone, Zithromax, Remdesivir as above gave Tociluzumab on 04/03 due to worsening condition good response to Lasix 20mg IV intermittently Improving as above (3) Elevated d-dimer: - level at 510 on admission - Lovenox 40mg SQ daily here and send home with Xarelto 10mg daily x 35 days for continued prevention given high risk of VTE with age, COVID, hypoxia, prolonged hospitalization an dimmobilization (4) Elevated transaminase level: - AST elevated to 133, ALT to 154 on admission, decreasing daily but still not back to normal - likely secondary to acute viral infection f/u LFTs as outpt in 2 weeks with PCP (5) Panic attack: very anxious at times, driven by respiratory rate relieved with Ativan 0.5mg PO PRN Improved (6) Hypokalemia: improved with replacement DVT proph-Lovenox here and Xarelto on discharge as above Dispo-dc to home Total Time Total Time Spent Total Time Spent (In Minutes): 40 min Discharge Plan Discharge Items Patient Disposition: Home - Self-Care Reason For Visit: HYPOXIA DUE TO COVID PNEUMONIA Discharge Diagnosis: COVID-19 Pneumonia, Acute respiratory failure with hypoxia Condition on Discharge: Fair Activity: As commented below Lifting: Gradually increase as tolerated Bathing: No limitations Exercise/Sports: Gradually increase as tolerated Non-emergency contact: Primary Care Provider Call non-emergency contact if: you have any medication questions, your symptoms worsen, you have a fever and your temperature is above 101 Follow-up/Referrals: Moris Stoner, [Primary Care Provider] - (Follow up within 1-2 weeks.) Diet: Regular Addtl Attending Provider Instructions: You were admitted with COVID-19 pneumonia and hypoxia (low oxygen levels). You were treated with medications to help reduce inflammation and an antiviral. You were weaned down to needing no oxygen at rest, but will need to wear 3L of oxygen with any exertion/activity. Please stay on the oxygen until your doctor tells you to stop using it. You should keep an eye on your pulse oximeter readings frequently throughout the day and call your doctor if your reading is below 88%. You will be prescribed Xarelto 10mg once daily for 35 days to prevent blood clots. COVID-19 along with a prolonged hospitalization, puts you at high risk for getting blood clots in the legs or lung. If you notice leg pain or swelling, worsening shortness of breath or chest pain, please return to the hospital right away to get checked out. You should have a repeat chest xray in 4 weeks to ensure your pneumonia has resolved. Pending Studies at Discharge: No Stand-Alone Forms: My [facility], Smoking Cessation Medications and DC Order Prescriptions: New Xarelto 10 mg tablet 10 mg PO DAILY 35 Days Qty: 35 RF: 0 Continued multivitamin [Daily Multi-Vitamin] Tablet 1 tab PO QAM RF: 0 omega-3 fatty acids [Fish Oil Concentrate] 1,000 mg capsule 2,000 mg PO QAM RF: 0 testosterone [AndroGel] 1 % (50 mg/5 gram) gel in packet 100 mg TD QAM RF: 0 albuterol sulfate 90 mcg/actuation HFA aerosol inhaler 2 inh inhalation Q6H PRN (Reason: shortness of breath or wheezing) Qty: 8.5 RF: 0 hydrocodone-homatropine [Hycodan] 5-1.5 mg/5 mL (5 mL) syrup 5 - 10 ml PO Q6H PRN (Reason: cough) Qty: 100 RF: 0 omeprazole 40 mg Capsule,Delayed Release(Dr/Ec) 40 mg PO QAM RF: 0 Discontinued dexamethasone 6 mg tablet 6 mg PO DAILY Qty: 6 RF: 0 Discharge Orders: Discharge Order (Routine); Ordered 04/10/21 Ordered By: Génesis Rock Admission Data Admit Date/Time: 04/01/21 21:55 Attending Provider: Génesis Rock Admit Provider: Kell Baptiste Primary Care Provider: Moris Stoner Other Providers: Herbert Gomez ; Randall Olivera Coding Level of Care Code D/C DAY MANAGEMENT >30 MINS Diagnoses Acute respiratory failure with hypoxemia J96.01 Pneumonia due to 2019 novel coronavirus U07.1; J12.82 Elevated d-dimer R79.89 Elevated transaminase level R74.01 Panic attack F41.0 Hypokalemia E87.6
--- NOTE | 2021-04-19 11:42 | Coding Query ---
SEPSIS To promote full compliance with coding requirements relating to patient care, physician participation is requested in all cases of senior clerk uncertainty. Please assist us with the question(s) below: In responding to this query, please exercise your independent professional judgement. The fact that a question is asked does not imply that any particular answer is desired or expected. We appreciate your clarification on this issue. Throughout the medical record, you have clearly documented a localized infection and your patient has clinical evidence of a generalized sepsis or severe sepsis. The term urosepsis is a nonspecific entity and is coded as an UTI. If the patient has sepsis, severe sepsis, from an urinary source or some other source, please clarify in your response below. The medical record reflects the following clinical findings: Patient admitted with COVID Penumonia & Acute respiratory failure/hypoxia. H/P stated "Sepsis/ SIRS criteria met". Please check below the phrase that describes whether patient had Sepsis on admission. Thanks for your help! Sai Lubin [facility] ____ ( )Bacteremia (Nonspecific laboratory finding of bacteria in the blood) Specify Organism ( ) Present on Admission ( ) Not present on admission ( ) Unable to clinically determine ( ) Septicemia (Systemic disease associated with the presence of pathogenic microorganisms in the blood): Specify Organism ( ) Present on Admission ( ) Not present on admission ( ) Unable to clinically determine ( x) Sepsis Specify Organism Specify Associated Condition/Diagnosis (x ) Present on Admission ( ) Not present on admission ( ) Unable to clinically determine ( ) Severe Sepsis (Sepsis associated with acute organ dysfunction) Specify Organism Specify Associated Condition/Diagnosis ( ) Present on Admission ( ) Not present on admission ( ) Unable to clinically determine ( ) Septic Shock (Severe sepsis with acute circulatory failure, unexplained by other causes) ( ) Present on Admission ( ) Not present on admission ( ) Unable to clinically determine ( ) Other, patient has: MTDD
== END 2021-04-10 15:30 | disposition home or self-care (01) | DRG 871 ==
LOC: ED 18:34 → SUATTDRO 21:55 → 2N 21:55 → 2E 04-03 08:01 → 2S 04-03 08:04